=== PATIENT | male | born 1955 | race African-American/Black ===

== ENCOUNTER 2017-05-20 19:50 | Inpatient (IN) | payer OTHER ==
[~2017-05-20] VITALS: Ht 182.9 cm; Wt 89.8 kg
--- NOTE | ~2017-05-20 | HC ---
[facility] [place] [address] CONSULTATION Name: PAIGE ROB Room #: 355-P [facility] IN M.R.#: [id number] Admission: 05/20/17 Attend Phys: Ihsan Madera Discharge: Date of : 51 Report #: [id number] THIS REPORT FOR: //name// CC: Ihsan Wilkerson REASON FOR CONSULTATION: I was asked to evaluate concerning stage 4 sacral decubitus with infection, leukocytosis. HISTORY OF PRESENT ILLNESS: This is a 62-year-old quadriplegic after a fall from a ladder in 01/2017. He underwent C2 through T2 laminectomy and posterior fusion at [facility]. Postoperatively, was quadriparetic. He has neurogenic bowel and bladder. He has incontinence of his bile and has leakage from his urinary catheter. He has been dealing with a sacral decubitus for the last several months. No improvement, he actually has worsened and therefore was transferred from his senior care in [facility]. He has been seen by Wound Care. It is unclear if he has been on any recent antibiotics. ALLERGIES: MORPHINE. MEDICATIONS: As noted on his MAR including vancomycin and Zosyn. PAST MEDICAL HISTORY: Unchanged from his history and physical, which was reviewed in detail. FAMILY HISTORY: Unchanged from his history and physical, which was reviewed in detail. SOCIAL HISTORY: Unchanged from his history and physical, which was reviewed in detail. He is a past smoker. REVIEW OF SYSTEMS: He has a tracheostomy, but is on no oxygen except at night. He is capped. He has a PEG tube. Indwelling Cervantes catheter. No cough or sputum production of significance. Does need occasional suctioning. His tracheostomy has remained in place for adequate access of mucous plugging. The patient did have a prolonged ventilatory stay and required vent weaning at [facility]. PHYSICAL EXAMINATION: VITAL SIGNS: Afebrile, hemodynamically stable. GENERAL: Alert, oriented, pleasant, in no acute distress. He was quadriparetic. HEENT: Unremarkable. NECK: Tracheostomy site unremarkable. LUNGS: Clear. HEART: Regular, without murmur. ABDOMEN: Soft. PEG site was unremarkable. [facility] [address] [place] [address] CONSULTATION Name: DARRONPAIGE K Room #: 355-P [facility] IN .R.#: [id number] Admission: 05/20/17 Attend Phys: Ihsan Madera Discharge: Date of : 51 Report #: [id number] EXTREMITIES: Peripheral IVs in place. Extremities are otherwise unremarkable. BACK: Extensive tissue necrosis to his coccyx with odorous drainage. There was no fluctuance outside the coccyx region. RECTAL: Not performed. GENITOURINARY: External genitalia with indwelling Cervantes catheter. Small amount of drainage from the penis. LABORATORY STUDIES: Sodium 139, potassium 4.3, bicarbonate 25, creatinine 0.5. Hemoglobin 9.3, platelet count 288,000, white count 13.7 with 84% segs, 8% lymphs. Urinalysis with many wbc's, few bacteria. Wound culture is pending. Urine culture is pending. IMPRESSION: A 62-year-old recent quadriplegic with pressure wound to the sacrum, now with tissue necrosis and secondary infection, previous respiratory failure, now with a capped trach. Urinary incontinence with chronic indwelling Cervantes catheter and rectal incontinence. RECOMMENDATIONS: We will continue IV antibiotic therapy with vancomycin and Zosyn. Surgical evaluation for debridement and colostomy. Agree with a suprapubic catheter placement. We would consider holding his PEG tube removal until we have established adequate nutrition and wound healing. Obtain baseline chest x-ray. <ELECTRONICALLY SIGNED> By: Chon Alvarez MD 05/22/17 1622 [id number] [id number] Chon Alvarez MD /nt
--- NOTE | ~2017-05-20 | S ---
[facility] [address] [facility] [address] SURGICAL PATH RPT PROCEDURE Name: PAIGE BURNS Room #: 355-P ADM IN M.R.#: [id number] Admission: 05/20/17 Date of : 51 Discharge: Report #: [id number] Path Case #: [id number] PATHOLOGY REPORT COLLECTION DATE: 05/22/2017 RECEIVED DATE: 05/22/2017 SUBMITTING PHYS: Dr. Brittany Young OTHER PHYS: Dr. Ihsan Wilkerson SPECIMEN(S) RECEIVED: A.Sacral decub * * * * * * * * * * * * FINAL DIAGNOSIS: Sacral decubitus ulcer, debridement: - Marked acute and chronic inflammation associated with fibrinoid degeneration as well as fat necrosis, compatible with the provided history of sacral decubitus. (IUV:mgr; 05/24/2017) PATHOLOGIST: Lona Moscoso M.D. REPORT ELECTRONICALLY SIGNED BY: Lona Moscoso M.D. DATE/TIME: 05/24/2017 15:32 * * * * * * * * * * * * GROSS PATHOLOGY: The specimen is received in formalin labeled "Paige Burns, sacral decubitus ulcer". Received is an irregular excision of santiago-brown 2 necrotic-appearing skin with attached underlying yellow-marlow to santiago-marlow, necrotic-appearing adipose tissue measuring 11.2 x 9.2 x 6.2 cm in greatest dimensions and certainly submitted segment of yellow-marlow to santiago-marlow fibroadipose tissue measuring 6.1 x 3.8 x 2.4 cm. The specimen is submitted representatively in cassette A1. Sectioning reveals yellow-marlow to dusky santiago-marlow, necrotic-appearing cut surfaces. The specimen is submitted representatively in cassette A1. (CAA; 05/23/2017) CLINICAL HISTORY: Sacral decubitus INITIAL CPT CODE(S): A; 79355 Professional [facility] by [facility] at [address] [address] SURGICAL PATH RPT PROCEDURE Name: PAIGE BURNS Room #: 355-P [facility] IN ..#: [id number] Admission: 05/20/17 Date of : 51 Discharge: Report #: [id number] Path Case #: [id number] , [place] [address] Technical services performed by [facility] at [address] [place] [address], [facility] [address] [address]. [facility] [address] [place] [address] PHONE: [phone] DIRECTOR: Michael Torrez M.D. * * * END OF REPORT * * *
--- NOTE | ~2017-05-20 | HC ---
[facility] [address] [place] [address] CONSULTATION Name: PAIGE RBO Room #: 355-P [facility] IN ..#: [id number] Admission: 05/20/17 Attend Phys: Ihsan Madera Discharge: Date of : 51 Report #: [id number] THIS REPORT FOR: //name// CC: Ihsan Wilkerson DATE OF SERVICE: 05/21/2017 REFERRING PROVIDER: Dr. Madera. REASON FOR CONSULTATION: Infected sacral decubitus wound. HISTORY OF PRESENT ILLNESS: The patient is a 62-year-old -[place] male who has developed quadriplegia after a fall off a ladder in January of 2017. The patient underwent C2-T2 laminectomy with posterior instrumentation and fusion in January of 2017 and since then he has become quadriplegic with only minimal feeling above his umbilicus. The patient has lost all bladder and bowel control with incontinence and has had a long-term Cervantes catheter in place. The patient did undergo tracheostomy and PEG tube placement and his tracheostomy has since been capped and he is conversive. His PEG tube is in place and causing no issue, although he is having issues with his long-term Cervantes catheter with chronic leakage and urethral erosion and discharge. Unfortunately, the patient has developed a stage 4 sacral decubitus wound that is grossly infected and has malodorous discharge and for that reason, I was asked to evaluate as well as to evaluate for possible diverting colostomy. 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 He has hypertension, diabetes mellitus, hyperlipidemia, GERD, obstructive sleep apnea, gout, depression, coronary artery disease status post SC, obesity and now neurogenic bowel and bladder. HOME MEDICATIONS: Subcutaneous heparin, guaifenesin, Prozac, Protonix, Colace, Dulcolax, Augmentin, insulin, Zofran, DuoNebs, dexamethasone, Januvia, oxycodone, amlodipine, allopurinol, loratadine, and Tylenol p.r.n. ALLERGIES: MORPHINE, which causes mild itching. FAMILY HISTORY: Reviewed and noncontributory. SOCIAL HISTORY: The patient does not utilize tobacco, alcohol or illicit drugs. He is accompanied by his today. REVIEW OF SYSTEMS: GENERAL: The patient denies nocturnal fevers or chills. [address] [address] CONSULTATION Name: PAIGE ROB Jamal Room #: 355-P [facility] IN .R.#: [id number] Admission: 05/20/17 Attend Phys: Ihsan Madera Discharge: Date of : 51 Report #: [id number] HEENT: No change in vision, change in hearing. NECK: No swelling or difficulty swallowing. HEART: No chest pain, palpitations. LUNGS: No cough or shortness of breath. ABDOMEN: No nausea, no vomiting. GENITOURINARY: No dysuria or hematuria. ENDOCRINE: No polyuria, polydipsia. HEMATOLOGIC: No history of bleeding or easy bruising. EXTREMITIES: Significant weakness and limited range of motion due to paraplegia. NEUROLOGIC: No history of syncope or near syncopal episodes. PSYCHIATRIC: History of depression and anxiety. SKIN AND INTEGUMENT: No prior history of abnormal lesions or moles other than his decubitus wound. PHYSICAL EXAMINATION: VITAL SIGNS: Temperature 99.1, pulse 96, respirations 22, blood pressure 114/54. He is 6 feet 0 inches tall and weighs 198 pounds. GENERAL: He is alert and oriented, in no acute distress. HEENT: Normocephalic, atraumatic. Right Pupil is equal, round, reactive to light. Left eye has been enucleated and has a prosthetic in place. NECK: Supple, without lymphadenopathy. Tracheostomy is intact and capped. HEART: Regular rate and rhythm. LUNGS: Clear to auscultation bilaterally. ABDOMEN: Soft, nontender, nondistended. PEG tube is intact and unremarkable. GENITOURINARY: Normal external male genitalia with Cervantes catheter in place. There is urethral erosion at the meatus with small amount of drainage. EXTREMITIES: No clubbing, cyanosis or edema. Cranial nerves 2-12 are grossly intact. He is quadriplegic. PSYCHIATRIC: Normal mood and affect. SKIN AND INTEGUMENT: He has extensive tissue necrosis to the coccyx with malodorous drainage consistent with a stage IV sacral decubitus wound. LABORATORY AND X-RAY DATA: CBC shows white blood cell count of 13.7 thousand, hemoglobin 9.3, platelets 288,000. Creatinine 0.5. Urinalysis shows greater than 25 white blood cells and 1-9 bacteria with no squamous epithelial cells consistent with urinary tract infection from chronic Cervantes catheterization. Lactic acid normal at 0.8. Chest x-ray shows no acute cardiopulmonary finding. ASSESSMENT AND PLAN: A 62-year-old male who suffered traumatic quadriplegia 4 months ago who presents with a stage 4 sacral decubitus wound that was grossly infected. In addition, the patient has urethral erosions and discharge with a urinary tract infection. Urology has evaluated the patient and is undergoing workup for possible suprapubic catheter placement. As far as the patient's decubitus wound, he necessitates excisional debridement sooner rather than later due to the acute infection in the wound with necrosis. In addition, he would [facility] [address] [place] [address] CONSULTATION Name: DARRONPAIGE K Room #: 355-P [facility] IN M.R.#: [id number] Admission: 05/20/17 Attend Phys: Ihsan Madera Discharge: Date of : 51 Report #: [id number] benefit from the diverting colostomy to divert his fecal stream and make long-term care easier. I did carry out a greater than 60-minute discussion of all the above with the patient and his at the bedside today who are in favor of proceeding forward as well. As such, we will proceed tomorrow with debridement of his wound as well as diverting colostomy and suprapubic catheter placement will be managed by Urology moving forward. I sincerely appreciate this consult. We should continue antibiotics per the direction of Infectious Disease and I will follow closely and leave any further recommendations in the patient's chart as appropriate. <ELECTRONICALLY SIGNED> By: Brittany Young MD, FACS 05/22/17 0759 1526 23 Brittany Young MD, FACS /nt
--- NOTE | ~2017-05-20 | HC ---
[facility] [address] CONSULTATION Name: PAIGE ROB Room #: 355-P [facility] IN M.R.#: [id number] Admission: 05/20/17 Attend Phys: Ihsan Madera Discharge: Date of : 51 Report #: [id number] THIS REPORT FOR: //name// CC: Ihsan Wilkerson DATE OF SERVICE: 05/21/2017 PERSONAL PHYSICIAN: Dr. Larry Wilkerson. CHIEF COMPLAINT: Unstageable decubitus ulcer, concern for stage IV decubitus ulcer. HISTORY OF PRESENT ILLNESS: This is a 62-year-old black male who is quadriplegic after a fall back in 01/2017. The patient states that he thinks he had a cervical fracture that was from the injury and then subsequently underwent surgery and postoperatively, the patient was quadriplegic. The surgery was C2 through T2 laminectomy and posterior fusion. The patient was then transferred back to a fdc in [facility] where he resides. The patient has been having the wound followed by the wound care team there and has been only getting progressively worse, which prompted him to bring him to the hospital here in [place] for further evaluation, more aggressive debridement and wound care. CURRENT MEDICATIONS: Multiple, I reviewed the patient's medication list, it does including vancomycin and Zosyn. ALLERGIES: MORPHINE. PAST MEDICAL HISTORY: Significant for tracheostomy which has now been capped, history of PEG tube, hypertension, diabetes, hyperlipidemia, gastroesophageal reflux disease, coronary artery disease with previous RI. CURRENT MEDICATIONS: ____ inpatient medication list. SOCIAL HISTORY: The patient resides in a nursing care facility. He has approximately a 66-dhpk-suad history of smoking and quitting greater than a year ago. Does not drink alcohol. FAMILY HISTORY: Not pertinent to current medical condition. REVIEW OF SYSTEMS: CONSTITUTIONAL: The patient denies fevers or chills at this time. NEUROLOGIC: The patient has cervical quadriplegia with minimal movement of his upper extremities and no movements of his lower extremities and no sensation. EYES: No complaints. ENT: No complaints. [facility] [address] [place] [address] CONSULTATION Name: PAIGE ROB Jamal Room #: 355-P [facility] IN M.R.#: [id number] Admission: 05/20/17 Attend Phys: Ihsan Madera Discharge: Date of : 51 Report #: [id number] CARDIAC: The patient denies chest pain, palpitations or peripheral edema. RESPIRATORY: The patient denies shortness of breath, cough. The patient does have a tracheostomy in place, but this has been capped. GASTROINTESTINAL: The patient denies nausea, vomiting or abdominal pain. He does have PEG tube. GENITOURINARY: The patient denies urgency, frequency, but he does have urinary incontinence. MUSCULOSKELETAL: No complaints. SKIN: The patient has an unstageable decubitus ulcer with significant eschar and necrotic tissue. PHYSICAL EXAMINATION: VITAL SIGNS: Temperature 37.3, pulse 96, respirations 22, BP 114/54. GENERAL: This is alert and oriented x 3, pleasant black male who is in mild distress secondary to her symptoms. HEENT: Normocephalic, atraumatic. Mucous membranes are moist. Pupils are round. Sclerae white. NECK: Tracheostomy in place, it is capped. There are no signs of excoriation around the tracheostomy site. LUNGS: Clear. HEART: Regular. ABDOMEN: Distended, soft, otherwise essentially nontender. PEG tube is in place without excoriation. EXTREMITIES: The patient has minimal movement of any extremities. Bilateral heels are intact. Distal pulses are intact. Evaluation of sacrococcygeal region reveals an unstageable decubitus ulcer with significant amount of necrotic moist eschar foul-smelling and somewhat spongy in nature. There is some tunneling circumferentially around this, approximately 2-3 cm, with seropurulent drainage, once again moderately foul odor. Periulcer itself is erythematous, but no significant warmth. There is mild maceration. LABORATORY DATA: White count 13.7, hemoglobin 9.3. BUN 8, creatinine 0.5, albumin is pending. WOUND CARE COURSE: I have spoken at length with the patient and the patient's . 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 The patient also already has a PEG tube. I think the patient would be appropriate to have a colostomy to divert the stool away from the coccygeal ulceration. The patient is very agreeable to this as well. At some point in time, the patient most likely will need myocutaneous flap closure to come to complete healing of this wound. I will check an MRI on this patient as well to check the underlying extent of the ulceration underneath what appears to be the unstageable ulcer at this time. We will make sure we maximize the patient's tube feedings at night for protein supplementation. [facility] [address] [place] [address] CONSULTATION Name: PAIGE ROB Room #: 355-P ADM IN M.R.#: [id number] Admission: 05/20/17 Attend Phys: Ihsan Madera Discharge: Date of : 51 Report #: [id number] IMPRESSION: 1. Unstageable decubitus ulcer, sacrococcygeal region present on admission for the past several months. 2. Cervical quadriplegic. 3. Generalized debility. 4. Concern for protein calorie malnutrition. 5. Diabetes mellitus. PLAN: Described at length as above. We will continue to follow the patient. I appreciate the ability to consult. <ELECTRONICALLY SIGNED> By: Richard Cm MD 05/23/17 1145 1318 00 Richard Cm MD /nt
--- NOTE | ~2017-05-20 | O ---
[facility] [address] [address] [address] OPERATIVE REPORT Name: PAIGE ROB Room #: 355-P [facility] IN ..#: [id number] Admission: 05/20/17 Attend Phys: Ihsan Madera Discharge: 05/24/17 Date of : 51 Report #: [id number] THIS REPORT FOR: //name// CC: Ihsan Wilkerson DATE OF SERVICE: 05/22/2017 PREOPERATIVE DIAGNOSES: 1. Infected necrotic stage 4 sacral decubitus wound. 2. Chronic contamination of feces and urine in his wound with incontinence. 3. Traumatic quadriplegia. 4. Resolved respiratory failure, status post tracheostomy and PEG tube placement. 5. Hypertension. 6. Diabetes mellitus. 7. Hyperlipidemia. 8. Gastroesophageal reflux disease. 9. Obstructive sleep apnea. 10. Coronary artery disease status post myocardial infarction. 11. Obesity. POSTOPERATIVE DIAGNOSES: 1. Infected necrotic stage 4 sacral decubitus wound. 2. Chronic contamination of feces and urine in his wound with incontinence. 3. Traumatic quadriplegia. 4. Resolved respiratory failure, status post tracheostomy and PEG tube placement. 5. Hypertension. 6. Diabetes mellitus. 7. Hyperlipidemia. 8. Gastroesophageal reflux disease. 9. Obstructive sleep apnea. 10. Coronary artery disease status post myocardial infarction. 11. Obesity. PROCEDURES PERFORMED: 1. Excisional debridement of skin, subcutaneous tissue, muscle and bone of an infected necrotic stage 4 sacral decubitus wound, ultimately measuring 16.5 x 15 cm in dimension (247.5 square cm). Preoperative wound measurements were 10 x 10 cm with undermining and overt necrosis circumferentially. 2. Diverting loop transverse colostomy. SURGEON: Brittany Young MD BAKERY CHEF: ENA Morrissey. [address] [address] OPERATIVE REPORT Name: DARRONPAIGE K Room #: 355-P [facility] IN ..#: [id number] Admission: 05/20/17 Attend Phys: Ihsan Madera Discharge: 05/24/17 Date of : 51 Report #: [id number] ANESTHESIA: General endotracheal anesthesia. ESTIMATED BLOOD LOSS: Minimal (less than 50 mL). COMPLICATIONS: None appreciated. SPECIMENS: 1. All excised tissue from sacral decubitus wound to pathology. 2. Culture swabs to microbiology. 3. Bone to microbiology to rule out osteomyelitis. INDICATIONS: The patient is a 62-year-old -[place]ian male who suffered traumatic quadriplegia after falling off a ladder approximately 4 months ago. The patient underwent C2-T2 laminectomy with fusion and has overwhelming functional quadriplegia. The patient has neurogenic bowel and bladder with development of a stage 4 sacral decubitus wound that is infected with grossly necrotic tissue and purulent drainage with malodor. Indication was for debridement and diverting colostomy today. DESCRIPTION OF PROCEDURE: After explaining the risks, benefits and alternatives of the procedure with the patient in detail and obtaining consent, the patient was brought to the operating room and placed supine on his hospital bed. After conducting a thorough timeout procedure, verifying correct patient and procedure, the patient was given general endotracheal anesthesia via his indwelling tracheostomy appliance. Once adequate anesthesia was obtained, his SCDs were hooked up to pneumatic compression device and he is already on an inpatient regimen of IV antibiotic therapy, which is all in line with the SCIP protocol. The patient was now positioned on the operating room table in the prone position with all pressure points appropriately padded and his sacral wound was prepped and draped in standard surgical sterile fashion. Electrocautery was used to circumferentially debride all skin, subcutaneous tissue and muscle from the periphery of the wound, carrying it down to the depths of the wound where there was obvious bony exposure throughout. Once all necrotic tissue had been removed, there was evidence of purulent drainage, which was cultured with culture swabs and passed off the field for microbiologic analysis. All infected necrotic and devascularized tissue was removed as the excision was taken back to healthy bleeding tissue circumferentially as well as in the depths of the wound. The tip of the coccyx was removed with rongeurs back to healthy bleeding bone and this was also passed off the field to microbiology. The Saygentonix ultrasonic debridement tool was now used to remove all biofilm and remaining nonviable tissue throughout the bed of the decubitus wound, ultimately yielding a healthy wound bed throughout. Hemostasis was obtained with electrocautery. I now sprayed thrombin spray throughout the wound and packed it tightly with sterile saline-soaked Kerlix gauze, dressed it with 4 x 4s, ABDs and Medipore tape. The patient was then repositioned on the [address] [address] OPERATIVE REPORT Name: PAIGE ROB Room #: 355-P [facility] IN M.R.#: [id number] Admission: 05/20/17 Attend Phys: Ihsan Madera Discharge: 01/25/18 Date of : 51 Report #: [id number] operating room table in the supine position and the abdomen was prepped and draped in standard surgical sterile fashion. A #10 bladed scalpel was used to create a 3 cm vertical incision midway between the umbilicus and the xiphoid just to the right of midline. Electrocautery was used to carry this down through skin and subcutaneous tissues until I arrived upon the anterior fascia, which was scored longitudinally. This revealed the right rectus muscle posteriorly of which the fibers were split, revealing the posterior fascia. Posterior fascia was elevated between hemostats and was opened with Metzenbaum scissors. A finger was then placed in the abdomen. The remaining posterior fascia was opened with electrocautery in a controlled fashion with my finger in the abdomen to prevent injury from electrocautery burn. The transverse colon was seen to reside immediately posterior to the incision and this was grasped with a Kaylynn clamp and elevated into the wound. A window was made in the mesocolon and the colostomy retention bar was placed through this window, which was then anchored to the skin using 2-0 nylon in standard fashion. The antimesenteric aspect of the colon was elevated between DeBakey forceps and a small colotomy was made with electrocautery. This colotomy was intubated with a hemostat and this was used to extend the colotomy approximately 3 cm laterally to prevent injury to the back wall with cautery. I then used 3-0 Vicryl, taking full thickness bites on both the superior and inferior aspects to either side of the retention bar and anchoring it to the dermis. A 3-0 Vicryl was then used in standard running fashion to anchor the mucocutaneous juncture on both the left and right sides of the new colostomy. This gave us an excellently oriented vascularized loop transverse colostomy. Digital finger intubation showed patency to a subfascial level of both the afferent and efferent limbs. A sterile colostomy appliance was then applied. At the end of the procedure, all instrument, needle and sponge counts were correct. The patient tolerated the procedure without incident, was awakened in the operating room and transitioned to the recovery room in stable condition with no apparent complications. <ELECTRONICALLY SIGNED> By: Brittany Young MD, FACS 05/28/17 0806 [id number] Brittany Young MD, FACS /nt
[2017-05-20 21:30] VITALS: BP 111/70
[2017-05-20] MEDS ORDERED: HEPARIN 5 U1 UNIT/ML IV (22:23)
[2017-05-20] MEDS ORDERED: GUAIFENESIN200 MG PO (22:24)
[2017-05-20] MEDS ORDERED: PROTONIX40 M1 PO (22:25)
[2017-05-20] MEDS ORDERED: PROZAC20 MG PO (22:25)
[2017-05-20] MEDS ORDERED: FLEXERIL PO (22:26)
[2017-05-20] MEDS ORDERED: COLACE 100 MG100 MG PO (22:26)
[2017-05-20] MEDS ORDERED: BISACODYL SUPP10 MG RECTAL (22:27)
[2017-05-20] MEDS ORDERED: AUGMENTIN 875-1 EACH PO (22:28)
[2017-05-20] MEDS ORDERED: LEVEMIR SUBQ (22:29)
[2017-05-20] MEDS ORDERED: ONDANSETRON HCL4 M2 PO (22:30)
[2017-05-20] MEDS ORDERED: DUONEB 2.5-0.5 M3 ML INH (22:31)
[2017-05-20] MEDS ORDERED: DEXAMETHASONE0.5 MG PO (22:43)
[2017-05-20] MEDS ORDERED: JANUVIA100 MG PO (22:44)
[2017-05-20] MEDS ORDERED: SENNA8.6 MG PO (22:44)
[2017-05-20] MEDS ORDERED: OXAYDO5 MG PO (22:45)
[2017-05-20] MEDS ORDERED: NORVASC5 MG PO (22:46)
[2017-05-20] MEDS ORDERED: ALLOPURINOL 10100 M1 PO (22:46)
[2017-05-20] MEDS ORDERED: APAP650 PO (22:47)
[2017-05-20] MEDS ORDERED: CLARITIN10 MG PO (22:50)
[2017-05-20 23:40] VITALS: BP 132/78
[2017-05-21 03:25] LABS: URINE BILIRUBIN NEGATIVE (Negative); URINE BLOOD TRACE (Negative); URINE CLARITY CLOUDY; URINE COLOR YELLOW; URINE GLUCOSE-RANDOM* NEGATIVE (Negative); URINE KETONES NEGATIVE (Negative); URINE PROTEIN (DIPSTICK) TRACE (Negative); URINE UROBILINOGEN 0.2 E.U./dl (0.2-1.0)
[2017-05-21 03:26] LABS: URINE LEUKOCYTES-REFLEX 2+ (Negative); URINE NITRITE-REFLEX POSITIVE (Negative)
[2017-05-21 03:40] VITALS: BP 112/65
[2017-05-21 03:42] LABS: URINE WBC-REFLEX >25 Many /HPF (0-5)
[2017-05-21 03:43] LABS: URINE RBC 3-10 Few /HPF (0-2)
[2017-05-21 03:44] LABS: BACTERIA-REFLEX 1-9 Few /HPF (None Seen); CASTS None Seen /LPF (None Seen); CRYSTALS None Seen /LPF (None Seen); SQUAMOUS None Seen /LPF (0-3); WBC CLUMPS Occasional (None Seen)
[2017-05-21 06:48] LABS: ABSOLUTE NEUTROPHILS 11.6 thou/uL (1.4-8.2); BASOPHILS 0.9 % (0.0-2.0); EOSINOPHILS 0.7 % (0.0-3.0); HEMATOCRIT 28.1 % (42.0-52.0); HEMOGLOBIN 9.3 gm/dL (14.0-18.0); LYMPHOCYTES 8.7 % (24.0-44.0); MCH 27.3 pg (26.0-34.0); MCHC 33.1 g/dL (28.0-37.0); MCV 82.6 fL (80.0-100.0); MONOCYTES 5.3 % (1.0-8.0); PLATELET COUNT 288 thou/uL (150-400); POLYS 84.4 % (36.0-66.0); RDW 15.6 % (10.5-14.5); WBC 13.7 thou/uL (4.0-11.0)
[2017-05-21 06:57] LABS: CALCIUM 8.7 mg/dL (8.5-10.1); CREATININE 0.5 mg/dL (0.7-1.3); MAGNESIUM 1.5 mg/dL (1.8-2.4); POTASSIUM 3.4 mmol/L (3.5-5.1)
[2017-05-21 08:09] VITALS: BP 109/58
[2017-05-21 12:05] VITALS: BP 114/54
[2017-05-21 17:00] VITALS: BP 116/59
[2017-05-21 20:15] VITALS: BP 126/65
[2017-05-22] VITALS (11 sets, daily range): BP systolic 108–135; BP diastolic 54–68
[2017-05-22 07:55] LABS: CALCIUM 8.4 mg/dL (8.5-10.1); CREATININE 0.5 mg/dL (0.7-1.3); PHOSPHORUS 4.1 mg/dL (2.5-4.9); POTASSIUM 4.1 mmol/L (3.5-5.1)
[2017-05-23 04:30] VITALS: BP 113/61
[2017-05-23 08:48] VITALS: BP 125/61
[2017-05-23 11:10] VITALS: BP 135/73
[2017-05-23 16:29] VITALS: BP 141/65
[2017-05-23 19:55] VITALS: BP 149/63
[2017-05-24 03:45] VITALS: BP 155/56
[2017-05-24 07:10] VITALS: BP 155/56
[2017-05-24 07:17] VITALS: BP 135/59
[2017-05-24 14:15] VITALS: BP 135/59
[2017-05-24 14:21] VITALS: BP 118/76
[2017-07-04] MEDS ORDERED: LASIX 40 MG TAB40 M2 PO (00:17)
[2017-07-04] MEDS ORDERED: ENOXAPARIN40 MG/0.1 SUBQ (00:21)
[2017-07-04] MEDS ORDERED: LISINOPRIL10 MG PO (00:22)
[2017-07-04] MEDS ORDERED: NEO-BACIT-POLY3.5 GM TOP (00:24)
[2017-07-04] MEDS ORDERED: VANCO 1 GR1 GM/250 M IV (00:26)
[2017-07-04] MEDS ORDERED: ZOSYN 3.373.375 GM/1 IV (00:27)
[2017-07-04] MEDS ORDERED: XANAX 0.5 MG0.5 MG PO (00:28)
[2017-07-04] MEDS ORDERED: HYDROCODON-ACE1 EAC7 PO (00:30)
[2017-07-04] MEDS ORDERED: PHENASEPTIC1 BOT PO (00:30)
[2017-07-04] MEDS ORDERED: TRADJENTA5 MG PO (00:32)
[2017-07-04] MEDS ORDERED: ROBITUSSIN100 MG/53 PO (00:32)
[2017-07-04] MEDS ORDERED: DIFLUCAN200 MG PO ×2 (00:33→00:34)
== END 2017-05-24 18:24 | DRG 853 ==
LOC: 3W 19:50
PROVIDERS: Hospitalist; Nurse Practitioner Family
PROC: 0QB10ZZ Excision of Sacrum, Open Approach (ICD-10-PCS; principal; 2017-05-22)
PROC: 0D1L0Z4 Bypass Transverse Colon to Cutaneous, Open Approach (ICD-10-PCS; principal; 2017-05-22)
DX: A41.9 Sepsis, unspecified organism (principal); L89.154 Pressure ulcer of sacral region, stage 4; G82.50 Quadriplegia, unspecified; N39.0 Urinary tract infection, site not specified; K59.2 Neurogenic bowel, not elsewhere classified; G47.33 Obstructive sleep apnea (adult) (pediatric); I10 Essential (primary) hypertension; E11.9 Type 2 diabetes mellitus without complications; K21.9 Gastro-esophageal reflux disease without esophagitis; I25.10 Atherosclerotic heart disease of native coronary artery without angina pectoris; E66.9 Obesity, unspecified; R32 Unspecified urinary incontinence; E78.5 Hyperlipidemia, unspecified; L89.150 Pressure ulcer of sacral region, unstageable; M10.9 Gout, unspecified; S14.109A Unspecified injury at unspecified level of cervical spinal cord, initial encounter; X58.XXXA Exposure to other specified factors, initial encounter; F32.9 Major depressive disorder, single episode, unspecified; G83.9 Paralytic syndrome, unspecified; M60.9 Myositis, unspecified; Z91.19 Patient's noncompliance with other medical treatment and regimen; Z93.0 Tracheostomy status; Z93.1 Gastrostomy status; I25.2 Old myocardial infarction; Z68.26 Body mass index [BMI] 26.0-26.9, adult; Z88.6 Allergy status to analgesic agent; Y93.89 Activity, other specified; Y92.89 Other specified places as the place of occurrence of the external cause; Y99.8 Other external cause status; Z87.891 Personal history of nicotine dependence; Z82.49 Family history of ischemic heart disease and other diseases of the circulatory system; Z79.899 Other long term (current) drug therapy
CPT/HCPCS: 10879; 50010; 50101; 50386; 50403; 53353; 56524; 56525; 57092; 62110; 62900; 70005

== ENCOUNTER 2017-07-03 17:26 | Inpatient (IN) | payer OTHER ==
[~2017-07-03] VITALS: Ht 157.5 cm; Wt 99.9 kg
--- NOTE | ~2017-07-03 | HC ---
[facility] [place] [address] [address] [place] [address] CONSULTATION Name: PAIGE ROB Room #: 361-[facility] IN M.R.#: [id number] Admission: 07/03/17 Attend Phys: Jimbo Ceballos MD Discharge: Date of : 51 Report #: [id number] THIS REPORT FOR: //name// CC: Jimbo Wilkerson DATE OF SERVICE: 07/03/2017 CHIEF COMPLAINT: Stage 4 sacral pressure ulcer. HISTORY OF PRESENT ILLNESS: This is a 62-year-old male patient with whom we are familiar from the Wound Care Service with a history of quadriplegia and sacral pressure ulceration. He has had a previous debridement with colostomy and suprapubic catheter. He has developed fever and is brought in for further evaluation and treatment. The patient denies any specific discomfort at this time other than pain in his neck and shoulders, which is typical. PAST MEDICAL HISTORY: Positive for quadriplegia, stage 4 sacral pressure ulceration, status post debridement. MEDICATIONS: Include morphine, fluoxetine, pantoprazole, ondansetron, senna, allopurinol, furosemide, enoxaparin, lisinopril, vancomycin, Zosyn, alprazolam, hydrocodone, Phenaseptic, guaifenesin, linagliptin, fluconazole. SOCIAL HISTORY: Negative for alcohol or tobacco use. FAMILY HISTORY: Noncontributory. REVIEW OF SYSTEMS: CONSTITUTIONAL: Does have fever and chills. Denies weight loss. NEUROLOGICAL: The patient is quadriplegic. ENT: The patient denies earache, nasal drainage or sore throat. CARDIOVASCULAR: The patient denies chest pain or palpitations or diaphoresis. PULMONARY: The patient denies cough or shortness of breath. GASTROINTESTINAL: The patient denies nausea, vomiting or abdominal pain. Has colostomy and a suprapubic catheter. PHYSICAL EXAMINATION: SKIN: Pelvic region demonstrates a stage 4 sacral pressure ulcer. Bone is palpable in the base; however, it is mostly covered with some granulation tissue and the base is healthy, clean and granular. He has a new ulceration on the left ischial tuberosity, appears to be stage 3, although very superficial, clean with granulation tissue. Heels are intact. NEUROLOGICAL: The patient is a quadriplegic. He is awake, alert and oriented. CLINICAL IMPRESSION: [address] [address] CONSULTATION Name: PAIGE ROB Room #: 361[facility] IN ..#: [id number] Admission: 07/03/17 Attend Phys: Jimbo Ceballos MD Discharge: Date of : 51 Report #: [id number] 1. Stage 4 sacral pressure ulceration. 2. Stage 3 pressure ulceration of the left ischial tuberosity, which is new. 3. Quadriplegia secondary to spinal cord injury. 4. Severe protein calorie malnutrition with albumin of 1.7. RECOMMENDATIONS: At this point in time, we will resume the wound VAC to the sacral ulceration. Recommend a hydrocolloid or bordered foam to the right ischial tuberosity. He will need a low air loss mattress, q.2 hour turning and repositioning. Prevalon boots to both lower extremities. He will need aggressive nutritional support to maximize wound healing. Antibiotics per Infectious Disease. I appreciate being asked to see him in consultation. <ELECTRONICALLY SIGNED> By: Cornelio Delgado MD 07/05/17 0752 [id number] Cornelio Delgado MD /nt
--- NOTE | ~2017-07-03 | H ---
[facility] [place] [address] [place] [address] HISTORY AND PHYSICAL Name: PAIGE ROB Room #: 361-P ADM IN M.R.#: [id number] Admission: 07/03/17 Attend Phys: Jimbo Ceballos MD Discharge: Date of : 51 Report #: [id number] THIS REPORT FOR: //name// CC: Jimbo Wilkerson DATE OF SERVICE: 07/03/2017 ATTENDING PHYSICIAN: Eder Gillespie MD. PRIMARY CARE PHYSICIAN: Unknown. CHIEF COMPLAINT: Fevers. HISTORY OF PRESENT ILLNESS: The patient is a 62-year-old -[place] male with a history of traumatic quadriplegia secondary to falling off of a ladder with a C2 injury in 01/2017. He was admitted here in April for a large sacral wound that was nonhealing and he underwent an I and D of the wound and then had placement of a diverting colostomy as well as a suprapubic catheter. From there, he was sent to [facility] and then on 06/20/2017, he was transferred to [facility] for long-term care. He was there about 4 days and then started having fevers, so he was admitted at [facility]. Initially, he was treated for sepsis at [facility] and he was mildly hypoxic. He was started on vancomycin and Zosyn. Chest x-ray has been negative. He was diagnosed with UTI and ended up growing yeast in his urine as well, did not have any urine culture results, but the blood cultures have remained negative. His lactate level has been normal. He states he has been having some associated chills and reports that most of his fevers are occurring in the evenings. He has had a PICC line in place for the last 1-1/2 to 2 months. He thinks his temperatures have been up to 100.4 despite being on IV antibiotics. He has had a wound VAC in place for the sacral wound. They have not noticed any foul smelling drainage or increased drainage from the wound. I do not see any wound cultures that have been obtained. He was transferred here due to persistent fevers for further evaluation. He is currently resting comfortably, in no acute distress. PAST MEDICAL HISTORY: Quadriplegia after a C2 injury, prior respiratory failure with tracheostomy placement, chronic sacral wound, hypertension, hyperlipidemia, diabetes, vertigo, GERD, sleep apnea, gout, depression, coronary artery disease status post FL. PAST SURGICAL HISTORY: C2-T2 laminectomy with posterior instrumentation and fusion. 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 [address] [address] HISTORY AND PHYSICAL Name: PAIGE ROB Room #: 361-P [facility] IN M.R.#: [id number] Admission: 07/03/17 Attend Phys: Jimbo Ceballos MD Discharge: Date of : 51 Report #: [id number] ALLERGIES: MORPHINE CAUSED HALLUCINATIONS. HOME MEDICATIONS: Current meds at [facility] were Zosyn, vancomycin, fluconazole 200 mg p.o. daily, DuoNeb p.r.n., Lovenox 40 mg at bedtime, lisinopril 10 mg daily, Armstrong 5/325 one tab q. 4 hours p.r.n., Tylenol p.r.n., Prozac 20 mg p.o. daily, Xanax 0.5 mg t.i.d. p.r.n., Lasix 40 mg p.o. daily, Robitussin p.r.n., Colace 100 mg b.i.d. p.r.n., senna b.i.d., Zofran q. 4 hours p.r.n., Protonix 40 mg p.o. daily, Tradjenta 5 mg p.o. daily, and allopurinol 100 mg p.o. daily. SOCIAL HISTORY: The patient denies any current tobacco use. He is a former smoker, having smoked 1 pack per day for about 20 years. He quit over a year ago. Denies any alcohol use. He currently is at [facility]. FAMILY HISTORY: Significant for heart disease and cancer. REVIEW OF SYSTEMS: The patient is able to swallow food, fluids, and meds without difficulty. He still has a PEG tube in place, but his states they really do not use it for anything at this time. There was a period last year when he had not been eating or drinking well, in which the PEG tube had been used. As far as his sacral wound, he currently has a wound VAC in place. All other 12-point review of systems was reviewed with the patient, otherwise negative unless stated in the HPI. PHYSICAL EXAMINATION: GENERAL: The patient is an alert male, in no acute distress. VITAL SIGNS: Temperature is 37.1, heart rate 97, respirations 22, blood pressure 147/82, oxygen 99% on 2 liters O2. HEENT: The left pupil is nonreactive as it is a prosthesis. Right pupil is reactive. Oral mucosa is pink and moist. NECK: He does have a trach in place. The site is clean, dry and intact. No JVD noted. CARDIOVASCULAR: Normal S1, S2. No murmurs, rubs or gallops. RESPIRATORY: Breath sounds are clear in the upper lobes. He is slightly coarse in both bases. Breathing is nonlabored. ABDOMEN: Round and soft. He does have bowel sounds present. Colostomy on the right side does have a moderate amount of air. It is an opaque bag, so no stool or stoma could be visualized. The PEG tube is clamped. The site is clean, dry and intact. Suprapubic catheter site is clean, dry and intact. VASCULAR: 2+ edema in bilateral upper extremities. There is no edema in the lower extremities. Pedal pulses are 2+. NEUROLOGIC: The patient is alert and oriented x 3. He is answering questions appropriately. He is unable to move his arms or legs. He does have some sensation in his upper extremities, but no movement. No significant contractures noted. SKIN: He does have a large sacral wound, but wound VAC is in place and the actual wound was not able to be assessed. [address] [address] HISTORY AND PHYSICAL Name: PAIGE ROB Room #: [facility] ADM IN M.R.#: [id number] Admission: 07/03/17 Attend Phys: Jimbo Ceballos MD Discharge: Date of : 51 Report #: [id number] LABORATORY AND DIAGNOSTIC DATA: Lab work done at [facility] showed a WBC of 7.06, hemoglobin 9.0 and platelets 326. Sodium 142, potassium 3.4, BUN 6, creatinine 0.7, glucose is 97. Influenza is negative. Chest x-ray is negative. Blood cultures have been negative. ASSESSMENT AND PLAN: 1. Persistent fevers. So far, his evaluation at [facility] was unremarkable. He has been treated for days on broad-spectrum antibiotics consisting of Zosyn and vancomycin. He did have some yeast in his urine and fluconazole was added in the last few days. We will continue with vancomycin, but switched to meropenem. Continue fluconazole. Infectious Disease will be consulted. He will be recultured with blood cultures and check a viral respiratory panel. 2. Large sacral decubitus ulcer. I do not see any imaging from [facility] as far as a CT scan to rule out osteomyelitis. We will consult Dr. Cm with Wound Care and check a CRP level. Continue the above antibiotics. 3. Recent urinary tract infection and funguria. Continue the above antibiotics and fluconazole and repeat a UA at this time. 4. Diabetes. Continue sliding scale insulin and Tradjenta. 5. Hypertension. Blood pressure is stable. Continue home meds. 6. Quadriplegia due to C2 injury. Reposition frequently. 7. Chronic respiratory failure. The patient is currently on 2 liters per nasal cannula. Trachea has been capped. Continue with breathing treatments. 8. Deep venous thrombosis prophylaxis. Continue Lovenox. We will continue to follow the patient closely throughout the hospitalization and make changes based on clinical status. <ELECTRONICALLY SIGNED> By: RADHA Newsome 07/05/17 0416 [id number] RADHA Newsome /nt
[~2017-07-03 17:26] MED LIST: ALLOPURINOL 10100 M1 PO; APAP650 PO; AUGMENTIN 875-1 EACH PO; BISACODYL SUPP10 MG RECTAL; CLARITIN10 MG PO; COLACE 100 MG100 MG PO; DEXAMETHASONE0.5 MG PO; DUONEB 2.5-0.5 M3 ML INH; FLEXERIL PO; GUAIFENESIN200 MG PO; HEPARIN 5 U1 UNIT/ML IV; JANUVIA100 MG PO; LEVEMIR SUBQ; NORVASC5 MG PO; ONDANSETRON HCL4 M2 PO; OXAYDO5 MG PO; PROTONIX40 M1 PO; PROZAC20 MG PO; SENNA8.6 MG PO
[2017-07-03 22:30] VITALS: BP 147/82
[2017-07-04] MEDS ORDERED: LASIX 40 MG TAB40 M2 PO ×2 (00:17)
[2017-07-04] MEDS ORDERED: ENOXAPARIN40 MG/0.1 SUBQ ×2 (00:21)
[2017-07-04] MEDS ORDERED: LISINOPRIL10 MG PO ×2 (00:22)
[2017-07-04] MEDS ORDERED: NEO-BACIT-POLY3.5 GM TOP ×2 (00:24)
[2017-07-04] MEDS ORDERED: VANCO 1 GR1 GM/250 M IV ×2 (00:26)
[2017-07-04] MEDS ORDERED: ZOSYN 3.373.375 GM/1 IV ×2 (00:27)
[2017-07-04] MEDS ORDERED: XANAX 0.5 MG0.5 MG PO ×2 (00:28)
[2017-07-04] MEDS ORDERED: HYDROCODON-ACE1 EAC7 PO ×2 (00:30)
[2017-07-04] MEDS ORDERED: PHENASEPTIC1 BOT PO ×2 (00:30)
[2017-07-04] MEDS ORDERED: ROBITUSSIN100 MG/53 PO ×2 (00:32)
[2017-07-04] MEDS ORDERED: TRADJENTA5 MG PO ×2 (00:32)
[2017-07-04] MEDS ORDERED: DIFLUCAN200 MG PO ×4 (00:33→00:34)
[2017-07-04 04:00] VITALS: BP 177/87
[2017-07-04 06:19] LABS: ABSOLUTE NEUTROPHILS 7.4 thou/uL (1.4-8.2); EOSINOPHILS 2.3 % (0.0-3.0); HEMATOCRIT 27.4 % (42.0-52.0); HEMOGLOBIN 8.8 gm/dL (14.0-18.0); MCH 26.5 pg (26.0-34.0); MCHC 32.2 g/dL (28.0-37.0); MCV 82.3 fL (80.0-100.0); MONOCYTES 8.6 % (1.0-8.0); PLATELET COUNT 351 thou/uL (150-400); POLYS 80.1 % (36.0-66.0); RBC 3.33 mil/uL (4.50-6.00); WBC 9.2 thou/uL (4.0-11.0)
[2017-07-04 06:39] LABS: ALBUMIN 1.7 g/dL (3.4-5.0); CALCIUM 8.3 mg/dL (8.5-10.1); CREATININE 0.8 mg/dL (0.7-1.3); POTASSIUM 3.1 mmol/L (3.5-5.1); TOTAL BILIRUBIN 0.2 mg/dL (<0.1-1.0); TOTAL PROTEIN 5.5 g/dL (6.4-8.2)
[2017-07-04 08:04] VITALS: BP 148/73
[2017-07-04 08:35] LABS: URINE BILIRUBIN NEGATIVE (Negative); URINE BLOOD NEGATIVE (Negative); URINE CLARITY SL CLOUDY; URINE COLOR YELLOW; URINE GLUCOSE-RANDOM* NEGATIVE (Negative); URINE KETONES NEGATIVE (Negative); URINE NITRITE-REFLEX NEGATIVE (Negative); URINE PROTEIN (DIPSTICK) NEGATIVE (Negative); URINE SPECIFIC GRAVITY <= 1.005 (1.005-1.035); URINE UROBILINOGEN 0.2 E.U./dl (0.2-1.0)
[2017-07-04 08:36] LABS: URINE LEUKOCYTES-REFLEX 2+ (Negative)
[2017-07-04 08:54] LABS: CASTS None Seen /LPF (None Seen); SQUAMOUS 0-3 Few /LPF (0-3); YEAST-REFLEX Present (None Seen)
[2017-07-04 08:55] LABS: AMORPHOUS URATES Few /LPF (None Seen); BACTERIA-REFLEX 1-9 Few /HPF (None Seen); URINE RBC 0-2 Rare /HPF (0-2); URINE WBC-REFLEX 6-15 Few /HPF (0-5)
[2017-07-04 11:34] VITALS: BP 113/55
[2017-07-04 15:20] VITALS: BP 141/75
[2017-07-04 20:00] VITALS: BP 153/68
[2017-07-05 04:00] VITALS: BP 142/63
[2017-07-05 08:51] VITALS: BP 136/74
[2017-07-05 12:14] VITALS: BP 125/60
[2017-07-05 17:49] LABS: MAGNESIUM 1.4 mg/dL (1.8-2.4); POTASSIUM 3.4 mmol/L (3.5-5.1)
[2017-07-05 19:58] VITALS: BP 135/63
[2017-07-06 03:53] VITALS: BP 131/67
[2017-07-06 07:28] VITALS: BP 193/91
[2017-07-06 07:44] LABS: CALCIUM 8.5 mg/dL (8.5-10.1); CREATININE 0.9 mg/dL (0.7-1.3); MAGNESIUM 1.5 mg/dL (1.8-2.4); POTASSIUM 3.2 mmol/L (3.5-5.1)
[2017-07-06 09:55] VITALS: BP 146/70
[2017-07-06 11:32] VITALS: BP 157/86
[2017-07-06 16:13] VITALS: BP 143/74
[2017-07-06 23:10] LABS: ADENOVIRUS Negative (Negative); INFLUENZA A Negative (Negative); INFLUENZA B Negative (Negative); METAPNEUMOVIRUS Negative (Negative); PARAINFLUENZA 1 Negative (Negative); PARAINFLUENZA 2 Negative (Negative); PARAINFLUENZA 3 Negative (Negative); RHINOVIRUS Negative (Negative); RSV A Negative (Negative); RSV B Negative (Negative)
== END 2017-07-06 17:09 | DRG 592 ==
LOC: 3W 17:26
PROVIDERS: Hospitalist; Internal Medicine; Nurse Practitioner Acute Care
PROC: 05HB33Z Insertion of Infusion Device into Right Basilic Vein, Percutaneous Approach (ICD-10-PCS; principal; 2017-07-04)
DX: L89.154 Pressure ulcer of sacral region, stage 4 (principal); G82.50 Quadriplegia, unspecified; E43 Unspecified severe protein-calorie malnutrition; Z68.41 Body mass index [BMI] 40.0-44.9, adult; J96.11 Chronic respiratory failure with hypoxia; L89.323 Pressure ulcer of left buttock, stage 3; T14.8XXA Other injury of unspecified body region, initial encounter; I10 Essential (primary) hypertension; E78.5 Hyperlipidemia, unspecified; E11.9 Type 2 diabetes mellitus without complications; K21.9 Gastro-esophageal reflux disease without esophagitis; M10.9 Gout, unspecified; F32.9 Major depressive disorder, single episode, unspecified; I25.10 Atherosclerotic heart disease of native coronary artery without angina pectoris; J44.9 Chronic obstructive pulmonary disease, unspecified; G47.33 Obstructive sleep apnea (adult) (pediatric); Z93.3 Colostomy status; X58.XXXA Exposure to other specified factors, initial encounter; Y92.89 Other specified places as the place of occurrence of the external cause; Y99.8 Other external cause status; Z93.0 Tracheostomy status; I25.2 Old myocardial infarction; Z88.6 Allergy status to analgesic agent; Z93.1 Gastrostomy status; Z82.49 Family history of ischemic heart disease and other diseases of the circulatory system; Z87.891 Personal history of nicotine dependence; Z79.4 Long term (current) use of insulin; Z79.899 Other long term (current) drug therapy
CPT/HCPCS: 10879

== ENCOUNTER 2017-07-07 11:26 | Emergency (ER) | payer OTHER ==
[~2017-07-07] VITALS: Ht 180.3 cm; Wt 90.7 kg
[~2017-07-07 11:26] MED LIST changes: +DIFLUCAN200 MG PO; +ENOXAPARIN40 MG/0.1 SUBQ; +HYDROCODON-ACE1 EAC7 PO; +LASIX 40 MG TAB40 M2 PO; +LISINOPRIL10 MG PO; +NEO-BACIT-POLY3.5 GM TOP; +PHENASEPTIC1 BOT PO; +ROBITUSSIN100 MG/53 PO; +TRADJENTA5 MG PO; +VANCO 1 GR1 GM/250 M IV; +XANAX 0.5 MG0.5 MG PO; +ZOSYN 3.373.375 GM/1 IV
[2017-07-07 12:08] LABS: URINE BILIRUBIN NEGATIVE (Negative); URINE BLOOD NEGATIVE (Negative); URINE CLARITY CLEAR; URINE COLOR YELLOW; URINE GLUCOSE-RANDOM* NEGATIVE (Negative); URINE KETONES NEGATIVE (Negative); URINE LEUKOCYTES-REFLEX 1+ (Negative); URINE NITRITE-REFLEX NEGATIVE (Negative); URINE PROTEIN (DIPSTICK) NEGATIVE (Negative); URINE UROBILINOGEN 0.2 E.U./dl (0.2-1.0)
[2017-07-07 12:14] LABS: BACTERIA-REFLEX 1-9 Few /HPF (None Seen); CASTS None Seen /LPF (None Seen); CRYSTALS None Seen /LPF (None Seen); SQUAMOUS None Seen /LPF (0-3); URINE RBC None Seen /HPF (0-2); URINE WBC-REFLEX 6-15 Few /HPF (0-5)
[2017-07-07 12:14] LABS: ABSOLUTE NEUTROPHILS 6.4 thou/uL (1.4-8.2); BASOPHILS 0.9 % (0.0-2.0); EOSINOPHILS 2.3 % (0.0-3.0); HEMATOCRIT 26.9 % (42.0-52.0); HEMOGLOBIN 8.9 gm/dL (14.0-18.0); LYMPHOCYTES 11.5 % (24.0-44.0); MCH 26.5 pg (26.0-34.0); MCHC 33.1 g/dL (28.0-37.0); PLATELET COUNT 420 thou/uL (150-400); POLYS 74.3 % (36.0-66.0); RBC 3.37 mil/uL (4.50-6.00); RDW 17.4 % (10.5-14.5); WBC 8.6 thou/uL (4.0-11.0)
[2017-07-07 12:23] LABS: ANION GAP 5 mmol/L (7-16); BUN 16 mg/dL (7-18); CALCIUM 8.5 mg/dL (8.5-10.1); CHLORIDE 110 mmol/L (98-107); CO2 24 mmol/L (21-32); CREATININE 0.9 mg/dL (0.7-1.3); GLUCOSE 102 mg/dL (74-106); POTASSIUM 3.2 mmol/L (3.5-5.1); SODIUM 139 mmol/L (136-145)
[2017-07-07 12:29] LABS: ALBUMIN 1.7 g/dL (3.4-5.0); DIRECT BILIRUBIN < 0.1 mg/dL (<0.1-0.3); MAGNESIUM 1.5 mg/dL (1.8-2.4); SGOT 21 U/L (15-37); SGPT 10 U/L (30-65); TOTAL BILIRUBIN 0.2 mg/dL (<0.1-1.0); TOTAL PROTEIN 5.6 g/dL (6.4-8.2)
[2017-07-07 15:58] VITALS: BP 150/82
== END 2017-07-07 15:58 | disposition home or self-care (01) ==
LOC: ER 11:26
PROVIDERS: Emergency Medicine
DX: E87.6 Hypokalemia (principal); E83.42 Hypomagnesemia; G82.50 Quadriplegia, unspecified; I10 Essential (primary) hypertension; E11.9 Type 2 diabetes mellitus without complications; K21.9 Gastro-esophageal reflux disease without esophagitis; M10.9 Gout, unspecified; G47.33 Obstructive sleep apnea (adult) (pediatric)

== ENCOUNTER 2017-09-02 04:13 | Inpatient (IN) | payer OTHER ==
[~2017-09-02] VITALS: Ht 157.5 cm; Wt 81.9 kg
--- NOTE | ~2017-09-02 | HC ---
[facility] [place] [address] [address] [place] [address] CONSULTATION Name: PAIGE ROB Room #: 201-P ADM IN M.R.#: [id number] Admission: 09/02/17 Attend Phys: Candelario Hazel DO Discharge: Date of : 51 Report #: [id number] THIS REPORT FOR: //name// CC: Jimbo Ceballos FAM unknown REFERRAL PHYSICIAN: Dr. Hazel. REASON FOR REFERRAL: Hemoptysis. HISTORY OF PRESENT ILLNESS: The patient is a 62-year-old -[place] Islander male who was admitted with hemoptysis. A pulmonary consultation was requested. The patient sustained a C2 cervical spine injury following a fall from a ladder in January 2017. He is quadriplegic. He has a chronic tracheostomy, which has been capped. He was in his usual state of health until yesterday, he was found to have mild hemoptysis through the trach. For that reason, he was admitted. Presently, he denies any complaints. Denies any chest pain, febrile illness. No further bright red per blood per tracheostomy is noted. As mentioned above, he had a fall from a ladder sustaining a C2 injury resulting in quadriplegia. This occurred in 01/2017. He was hospitalized for some time and eventually to an LTAC. Most recently, he lives in a longterm in [place], [place]. PAST MEDICAL HISTORY: As mentioned above, chronic respiratory failure, status post tracheostomy, chronic sacral wound, hypertension, hyperlipidemia, diabetes mellitus type 2, gastroesophageal reflux disease, SILVER, gout, coronary artery disease, past history of myocardial infarction. PAST SURGICAL HISTORY: As mentioned above, including C2-T2 laminectomy, prior history of cardiac surgery, status post tracheostomy tube placement, multiple sacral wound debridements, left prosthetic eye in 1976 due to a tumor, status post PEG tube placement, status post diverting colostomy tube placement, suprapubic catheter placement, prior right thumb surgery, left rotator cuff surgery. ALLERGIES: MORPHINE, WHICH CAUSES HALLUCINATIONS. MEDICATIONS: Lists are reviewed, in the MAR. FAMILY HISTORY: Notable for heart disease and cancer, type not specified. SOCIAL HISTORY: Presently resides in a longterm, has a chronic tracheostomy [facility] [address] [place] [address] CONSULTATION Name: PAIGE ROB Room #: 201-P [facility] IN [facility].#: [id number] Admission: 09/02/17 Attend Phys: Candelario Hazel DO Discharge: Date of : 51 Report #: [id number] tube that is capped. He has smoked in the past, smoking 1 pack a day until the last year. Denies any alcohol abuse. He is . He lives at [facility]. REVIEW OF SYSTEMS: As mentioned above, otherwise notable for quadriplegia. A 10-point system review is otherwise unremarkable. PHYSICAL EXAMINATION: GENERAL: He is awake, alert, in no apparent distress. VITAL SIGNS: Temperature is 99 degrees Fahrenheit, blood pressure 100/63 mmHg, respiratory rate is 16, saturation 96%. HEENT: Unremarkable. NECK: Status post tracheostomy tube, which is capped. CHEST: Clear breath sounds anteriorly. No rales or wheezes. CARDIOVASCULAR: Normal S1, S2. No murmurs or gallop. There is no JVD. There is no carotid bruit. Pulses are 2+ and 4+ bilaterally. ABDOMEN: Soft, nontender, no organomegaly or masses felt. GENITOURINARY: Deferred. RECTAL: Deferred. EXTREMITIES: There is no edema, cyanosis or clubbing. MUSCULOSKELETAL: Notable for mild muscle atrophy. LABORATORY DATA: Pending including chest x-ray. IMPRESSION: 1. Hemoptysis, probably related to either bronchitis or tracheal trauma. We will review chest x-ray. He does not appear to have an acute infectious process at this time. Impression: Traumatic fall sustaining a C2 injury resulting in quadriplegia, status post chronic tracheostomy. As mentioned above, tracheostomy is capped. 2. Chronic hypoxic respiratory failure on 2 liters of O2. 3. Chronic large decubitus ulcer. 4. History of coronary artery disease. 5. Diabetes mellitus type 2. 6. Hypertension. RECOMMENDATION: We will review labs when available including chest x-ray. I think for now, continue observation. If hemoptysis recurs or persists, we will consider diagnostic bronchoscopy. Thank you for the consultation. <ELECTRONICALLY SIGNED> By: Dallas Alvarez MD 09/03/17 [id number] [id number] Dallas Alvarez MD /nt
--- NOTE | ~2017-09-02 | HC ---
[facility] [place] [address] CONSULTATION Name: PAIGE ROB Room #: 201-P [facility] IN M.R.#: [id number] Admission: 09/02/17 Attend Phys: Candelario Hazel DO Discharge: 09/05/17 Date of : 51 Report #: [id number] THIS REPORT FOR: //name// CC: FAM unknown Candelario Hazel DATE OF SERVICE: 09/04/2017 REASON FOR CONSULTATION: Wound care of sacral stage 4 pressure wound and the left ischial stage 3 pressure wound in a patient with quadriplegia, respiratory failure and tracheostomy. HISTORY OF PRESENT ILLNESS: The patient is a patient suffering from quadriplegia, 62-year-old gentleman known to us from previous admissions. He was transferred from his outpatient care facility with hemoptysis and pulmonary consultation was requested. Wound care is requested to assess and care for his chronic wound, which are known to be a stage 4 wound of the sacrum and a stage 3 wound of the left ischial area. The patient is quadriplegic from a fall from a ladder in 01/2017 with resulting quadriplegia, respiratory failure and tracheostomy. The patient had hemoptysis, was transferred to the hospital. We are asked to take care of his wounds, have been previously debrided by Dr. Brittany Young. PAST MEDICAL HISTORY: Chronic respiratory failure with tracheostomy, hypertension, hyperlipidemia, and diabetes mellitus type 2. PAST SURGICAL HISTORY: History of diverting colostomy and PEG tube. ALLERGIES: MORPHINE. MEDICATIONS: See chart. PHYSICAL EXAMINATION: GENERAL: Shows chronic ill-appearing gentleman, alert, with a tracheostomy. The patient has a colostomy and a PEG tube. EXTREMITIES: Show quadriplegia. BACK: Examination of the patient's back shows a large stage 4 sacral pressure ulcer, which is well demarcated. Wound measures approximately 9 cm x 10 cm. Entire wound is lined with healthy granulation tissue, which is also covering sacral bone and coccyx with good granulation tissue. This wound is relatively clean. The patient also has a left ischial stage 3 pressure ulcer with no exposed bone. Wound measures approximately 4 cm x 6 cm. Both wounds have slightly foul odor and heavy exudate. IMPRESSION: 1. Quadriplegia. [address] [address] CONSULTATION Name: PAIGE ROB Room #: 201-P DIS IN M.R.#: [id number] Admission: 09/02/17 Attend Phys: Candelario Hazel DO Discharge: 09/05/17 Date of : 51 Report #: [id number] 2. Respiratory failure with tracheostomy. 3. Chronic diversion with colostomy. 4. Malnutrition with percutaneous endoscopic gastrostomy tube feeding. 5. Chronic sacral stage 4 pressure ulcer, status post debridement. 6. Left ischial stage 3 pressure ulcer. PLAN: Due to the foul odor of the wounds and heavy exudate, we will treat the wounds with quarter strength Dakin's packing. Once the wounds are office cleaner and if patient remains at [facility], we can treat the sacral wound with continued negative pressure wound therapy with a wound VAC. Once the patient is stabilized from his hemoptysis, however, he may be transferred back to his facility. Wound VAC to sacral wound can continue, wound care team will follow. <ELECTRONICALLY SIGNED> By: Derrick Berumen MD 09/07/17 1245 1815 0709 Derrick Berumen MD /nt
--- NOTE | ~2017-09-02 | O ---
[facility] [place] [address] OPERATIVE REPORT Name: PAIGE ROB Room #: 201-P [facility] IN M.R.#: [id number] Admission: 09/02/17 Attend Phys: Candelario Hazel DO Discharge: 09/05/17 Date of : 51 Report #: [id number] THIS REPORT FOR: //name// CC: FAM unknown Candelario Hazel DATE OF SERVICE: 09/04/2017 PREOPERATIVE DIAGNOSES: 1. Indwelling capped tracheostomy and malfunctioning PEG tube. 2. Traumatic quadriplegia. 3. Resolving intermittent dysphagia. 4. Hypertension. 5. Diabetes mellitus. 6. Hyperlipidemia. 7. Obstructive sleep apnea. 8. Coronary artery disease status post myocardial infarction. 9. Status post colostomy placement and debridement of a stage IV sacral decubitus wound. POSTOPERATIVE DIAGNOSES: 1. Indwelling capped tracheostomy and malfunctioning PEG tube. 2. Traumatic quadriplegia. 3. Resolving intermittent dysphagia. 4. Hypertension. 5. Diabetes mellitus. 6. Hyperlipidemia. 7. Obstructive sleep apnea. 8. Coronary artery disease status post myocardial infarction. 9. Status post colostomy placement and debridement of a stage IV sacral decubitus wound. PROCEDURES: 1. A thorough esophagogastroduodenoscopy (EGD). 2. Endoscopic removal of an indwelling percutaneous endoscopic gastrostomy (PEG) tube. SURGEON: Brittany Young MD SUPERVISOR [employer] CAN SUPPLY: None. ANESTHESIA: Monitored anesthesia care. ESTIMATED BLOOD LOSS: None. COMPLICATIONS: None. [facility] [place] [address] OPERATIVE REPORT Name: PAIGE ROB Room #: 201-P [facility] IN M.R.#: [id number] Admission: 09/02/17 Attend Phys: Candelario Hazel DO Discharge: 09/05/17 Date of : 51 Report #: [id number] SPECIMENS: PEG tube to pathology. INDICATIONS: The patient is a 62-year-old male known to me from a prior sacral debridement and diverting colostomy, who has undergone tracheostomy and PEG tube placement for acute respiratory failure after sustaining quadriplegia from a traumatic incident. The patient has done quite well as of late and has not utilized his PEG tube for several months as he is taking oral intake without issue. He was having intermittent dysphagia early on, which has improved substantially as of late and as he is tolerating all oral intake with no issues and has not used his PEG tube for some time, he requests removal, which is appropriate at this time point. In addition, the patient's indwelling PEG tube is completely occluded by material within the lumen of the tube itself due to not flushing it for several months and this required removal. Due to his recent intermittent dysphagia, indication was for EGD and endoscopic removal of the indwelling tube. DESCRIPTION OF PROCEDURE: After explaining the risks, benefits and alternatives of the procedure with the patient in detail in the preoperative holding area and obtaining written consent, the patient was brought to the endoscopy suite supine on his hospital bed. After conducting a thorough timeout procedure verifying correct patient and procedure, the patient was given monitored anesthesia care. Once adequate anesthesia was obtained, the Fujinon upper endoscope was used to intubate the oropharynx, was traversed down to the esophagus where the internal flange of the PEG tube was identified. The scope was advanced to the second portion of the duodenum where slow careful withdrawal of the scope showed no evidence of duodenitis, gastritis, esophagitis, mass, lesions or ulcerations. Retroflexion view of the scope within the gastric lumen showed a small hiatal hernia. The scope was straightened out and a loop snare was placed down the scope, which was used to grasp the internal flange. The PEG tube was pulled up and suture scissors were used to cut this at the skin level, transecting the PEG tube and the scope was removed via the oropharynx, bringing the internal flange of the PEG tube with it, which was passed off the field as specimen. The scope was advanced back into the esophagus where the esophagus itself was seen to be straight with no inflammation, no stricturing and no abnormal changes present. The stomach was fully desufflated. Scope was removed and passed off the field completing the procedure. At the end of the procedure, all instrument, needle and sponge counts were correct. The patient tolerated the procedure without incident, was awakened in the operating room, transitioned to the recovery room in stable condition with no apparent complications. <ELECTRONICALLY SIGNED> By: Brittany Young MD, FACS 09/05/17 1331 1218 1307 Brittany Young MD, FACS /nt
--- NOTE | ~2017-09-02 | HC ---
[facility] [place] [address] CONSULTATION Name: PAIGE ROB Room #: 201-P [facility] IN M.R.#: [id number] Admission: 09/02/17 Attend Phys: Candelario Hazel DO Discharge: Date of : 51 Report #: [id number] THIS REPORT FOR: //name// CC: Jimbo NAJERA unknown DATE OF SERVICE: 09/02/2017 REFERRING PROVIDER: Candelario Hazel DO. REASON FOR CONSULTATION: Tracheostomy bleeding and request for PEG tube removal as well as followup from ostomy placement. HISTORY OF PRESENT ILLNESS: The patient is a 62-year-old male known to me as I performed debridement of a stage 4 sacral decubitus wound as well as diverting loop transverse colostomy in 04/2017. The patient did have a tracheostomy and PEG tube placed prior to his admission in April and has since transitioned back to an LTAC for ongoing rehabilitation. Unfortunately, the patient had a large amount of blood from his tracheostomy site as they began suctioning him once again and has subsequently been transitioned back to the [facility] for ongoing evaluation. At this time, the patient's tracheostomy site does not appear to be bleeding. He has a PEG tube in place that has not been used for several weeks and he is tolerating p.o. intake without issue. The patient's colostomy appears pink, patent and functional as well. PAST MEDICAL HISTORY: Traumatic quadriplegia with respiratory failure, status post tracheostomy and PEG tube placement. 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 He has hypertension, diabetes mellitus, hyperlipidemia, GERD, obstructive sleep apnea, gout, depression, coronary artery disease status post [place], obesity, neurogenic bowel and bladder and he is status post colostomy placement and debridement of a stage IV sacral decubitus wound. HOME MEDICATIONS: DuoNeb, vancomycin, Prozac, Protonix, Colace, Zofran, senna, allopurinol, Tylenol, Lasix, Lovenox, lisinopril, triple antibiotic ointment, Zosyn, Xanax, [place], guaifenesin, linagliptin and Diflucan. ALLERGIES: TO MORPHINE. FAMILY HISTORY: Reviewed and noncontributory. SOCIAL HISTORY: The patient is currently not utilizing tobacco, alcohol or illicit drugs. REVIEW OF SYSTEMS: [address] [address] CONSULTATION Name: PAIGE ROB Room #: 201-P [facility] IN M.R.#: [id number] Admission: 09/02/17 Attend Phys: Candelario Hazel DO Discharge: Date of : 51 Report #: [id number] GENERAL: The patient denies nocturnal fevers or chills. HEENT: No change in vision, change in hearing. NECK: No swelling or difficulty swallowing. HEART: No chest pain, palpitations. LUNGS: No cough or shortness of breath. ABDOMEN: No nausea, no vomiting. GENITOURINARY: No dysuria or hematuria. ENDOCRINE: No polyuria or polydipsia. HEMATOLOGIC: No history of bleeding or easy bruising. EXTREMITIES: Significant weakness and limited range of motion due to paraplegia. NEUROLOGIC: No history of syncope or near syncopal episodes. PSYCHIATRIC: History of depression and anxiety. SKIN AND INTEGUMENT: Stage IV sacral decubitus wound that has undergone debridement. PHYSICAL EXAMINATION: VITAL SIGNS: Temperature 99.0, pulse 87, respirations 16, blood pressure 103/63. He is 5 feet 2 inches tall and weighs 176 pounds. GENERAL: He is alert and oriented, in no acute distress. HEENT: Normocephalic, atraumatic. Right pupil is equal, round, reactive to light. Left eye has been enucleated and has a prosthetic in place. NECK: Supple, without lymphadenopathy. Tracheostomy site is clean. I see no bleeding evident. HEART: Regular rate and rhythm. LUNGS: Clear to auscultation bilaterally. ABDOMEN: Soft, nontender, nondistended. Colostomy is pink, patent and functional. PEG tube is intact and unremarkable. GENITOURINARY: Normal external male genitalia. He has suprapubic catheter in place. EXTREMITIES: No clubbing, cyanosis or edema. NEUROLOGIC: Cranial nerves 2-12 are grossly intact. He is quadriplegic. PSYCHIATRIC: Normal mood and affect. SKIN AND INTEGUMENT: Stage IV sacral decubitus wound is relatively clean with a small amount of fibrinous exudate. LABORATORY AND X-RAY DATA: None available as it is all currently pending at this time. ASSESSMENT AND PLAN: A 62-year-old male who suffered traumatic quadriplegia several months ago and underwent tracheostomy and PEG tube placement as well as subsequently a colostomy with suprapubic catheter placement and debridement of a stage IV sacral decubitus wound. The patient has now been readmitted for hemoptysis through his tracheostomy site, although I do not see any ongoing bleeding and Pulmonary has been asked to evaluate for that as well. As for the patient's colostomy, it is pink, patent and functioning at this time and his [address] [address] CONSULTATION Name: PAIGE ROB Room #: 201-P [facility] IN .Luke.#: [id number] Admission: 09/02/17 Attend Phys: Candelario Hazel DO Discharge: Date of : 51 Report #: [id number] sacral wound is not yet fully healed, but is making significant improvement. The patient's PEG tube is in place, although he is tolerating regular diet and his PEG tube has not been utilized for several months. The patient was requesting possible removal of his PEG tube, which I think is a reasonable approach at this time point. Once he has been fully evaluated from his hemoptysis standpoint, we would plan to proceed with upper endoscopy with removal of the PEG tube at that time rather than traumatic withdrawal through the abdominal wall, especially in light of this patient who is on prophylactic anticoagulation to prevent DVT in this high-risk population. I sincerely appreciate this consult. I will follow closely and leave any further recommendations in the patient's chart as appropriate. <ELECTRONICALLY SIGNED> By: Brittany Young MD, FACS 09/03/17 1028 1532 1843 Brittany Young MD, FACS /nt
[2017-09-02 05:46] VITALS: BP 102/58
[2017-09-02 12:20] VITALS: BP 103/63
[2017-09-02 16:59] VITALS: BP 137/62
[2017-09-02 19:43] VITALS: BP 130/60
[2017-09-02 21:05] LABS: ABSOLUTE NEUTROPHILS 5.1 thou/uL (1.4-8.2); BASOPHILS 0.9 % (0.0-2.0); EOSINOPHILS 5.4 % (0.0-3.0); HEMATOCRIT 28.3 % (42.0-52.0); HEMOGLOBIN 9.5 gm/dL (14.0-18.0); LYMPHOCYTES 14.9 % (24.0-44.0); MCH 27.5 pg (26.0-34.0); MCHC 33.5 g/dL (28.0-37.0); MCV 82.1 fL (80.0-100.0); MONOCYTES 8.2 % (1.0-8.0); PLATELET COUNT 268 thou/uL (150-400); POLYS 70.6 % (36.0-66.0); RBC 3.45 mil/uL (4.50-6.00); WBC 7.2 thou/uL (4.0-11.0)
[2017-09-02 21:12] LABS: CALCIUM 8.7 mg/dL (8.5-10.1); CREATININE 0.6 mg/dL (0.7-1.3); POTASSIUM 3.2 mmol/L (3.5-5.1)
[2017-09-03] VITALS (7 sets, daily range): BP systolic 102–165; BP diastolic 52–72
[2017-09-03 05:02] LABS: HEMATOCRIT 27.8 % (42.0-52.0); HEMOGLOBIN 9.3 gm/dL (14.0-18.0); MCH 27.3 pg (26.0-34.0); MCHC 33.4 g/dL (28.0-37.0); MCV 81.7 fL (80.0-100.0); RBC 3.41 mil/uL (4.50-6.00); RDW 19.6 % (10.5-14.5); WBC 6.9 thou/uL (4.0-11.0)
[2017-09-03 05:17] LABS: ALBUMIN 2.1 g/dL (3.4-5.0); CALCIUM 8.8 mg/dL (8.5-10.1); CREATININE 0.5 mg/dL (0.7-1.3); POTASSIUM 3.5 mmol/L (3.5-5.1); TOTAL BILIRUBIN 0.2 mg/dL (<0.1-1.0); TOTAL PROTEIN 5.7 g/dL (6.4-8.2)
[2017-09-03 13:20] LABS: CALCIUM 8.8 mg/dL (8.5-10.1); CREATININE 0.5 mg/dL (0.7-1.3); POTASSIUM 3.3 mmol/L (3.5-5.1)
[2017-09-04 04:45] VITALS: BP 142/63
[2017-09-04 05:58] LABS: ABSOLUTE NEUTROPHILS 5.6 thou/uL (1.4-8.2); BASOPHILS 0.9 % (0.0-2.0); EOSINOPHILS 3.5 % (0.0-3.0); HEMATOCRIT 27.2 % (42.0-52.0); HEMOGLOBIN 9.1 gm/dL (14.0-18.0); LYMPHOCYTES 12.6 % (24.0-44.0); MCHC 33.3 g/dL (28.0-37.0); MCV 80.9 fL (80.0-100.0); MONOCYTES 8.4 % (1.0-8.0); PLATELET COUNT 256 thou/uL (150-400); POLYS 74.6 % (36.0-66.0); RBC 3.37 mil/uL (4.50-6.00); RDW 19.5 % (10.5-14.5); WBC 7.5 thou/uL (4.0-11.0)
[2017-09-04 06:06] LABS: CALCIUM 8.4 mg/dL (8.5-10.1); CREATININE 0.5 mg/dL (0.7-1.3); POTASSIUM 3.1 mmol/L (3.5-5.1)
[2017-09-04 07:15] VITALS: BP 142/71
[2017-09-04 11:03] VITALS: BP 144/62
[2017-09-04 15:05] VITALS: BP 157/70
[2017-09-04 19:10] VITALS: BP 135/78
[2017-09-05 04:35] VITALS: BP 134/72
[2017-09-05 05:41] LABS: ABSOLUTE NEUTROPHILS 7.4 thou/uL (1.4-8.2); BASOPHILS 0.6 % (0.0-2.0); EOSINOPHILS 2.3 % (0.0-3.0); HEMATOCRIT 25.6 % (42.0-52.0); HEMOGLOBIN 8.7 gm/dL (14.0-18.0); LYMPHOCYTES 11.3 % (24.0-44.0); MCH 27.4 pg (26.0-34.0); MCV 80.8 fL (80.0-100.0); MONOCYTES 5.6 % (1.0-8.0); PLATELET COUNT 268 thou/uL (150-400); POLYS 80.2 % (36.0-66.0); RBC 3.17 mil/uL (4.50-6.00); RDW 19.5 % (10.5-14.5); WBC 9.3 thou/uL (4.0-11.0)
[2017-09-05 05:51] LABS: CALCIUM 8.2 mg/dL (8.5-10.1); CREATININE 0.4 mg/dL (0.7-1.3)
[2017-09-05 06:04] LABS: POTASSIUM 2.9 mmol/L (3.5-5.1)
[2017-09-05 07:06] VITALS: BP 153/80
== END 2017-09-05 13:10 | DRG 907 ==
LOC: ICU 04:13 → 2N 05:20
PROVIDERS: Family Medicine; Internal Medicine Pulmonary Disease; Nurse Practitioner Family
PROC: 0DP63UZ Removal of Feeding Device from Stomach, Percutaneous Approach (ICD-10-PCS; principal; 2017-09-04)
DX: L76.22 Postprocedural hemorrhage of skin and subcutaneous tissue following other procedure (principal); L89.154 Pressure ulcer of sacral region, stage 4; L89.323 Pressure ulcer of left buttock, stage 3; S14.102A Unspecified injury at C2 level of cervical spinal cord, initial encounter; G82.50 Quadriplegia, unspecified; K94.23 Gastrostomy malfunction; J95.01 Hemorrhage from tracheostomy stoma; Y83.8 Other surgical procedures as the cause of abnormal reaction of the patient, or of later complication, without mention of misadventure at the time of the procedure; Y83.3 Surgical operation with formation of external stoma as the cause of abnormal reaction of the patient, or of later complication, without mention of misadventure at the time of the procedure; Y92.89 Other specified places as the place of occurrence of the external cause; I10 Essential (primary) hypertension; E78.5 Hyperlipidemia, unspecified; E11.9 Type 2 diabetes mellitus without complications; K21.9 Gastro-esophageal reflux disease without esophagitis; G47.33 Obstructive sleep apnea (adult) (pediatric); M10.9 Gout, unspecified; E66.9 Obesity, unspecified; W11.XXXA Fall on and from ladder, initial encounter; Z86.010 Personal history of colon polyps; I25.10 Atherosclerotic heart disease of native coronary artery without angina pectoris; I25.2 Old myocardial infarction; Z68.33 Body mass index [BMI] 33.0-33.9, adult; Z87.891 Personal history of nicotine dependence; Z93.3 Colostomy status; Z88.5 Allergy status to narcotic agent; Z82.49 Family history of ischemic heart disease and other diseases of the circulatory system; Z80.8 Family history of malignant neoplasm of other organs or systems; Y93.89 Activity, other specified; Y99.8 Other external cause status
CPT/HCPCS: 10081; 27001; 62110; 62900; 70005

== ENCOUNTER 2017-10-08 03:21 | Inpatient (IN) | payer OTHER ==
[~2017-10-08] VITALS: Ht 160 cm; Wt 89.0 kg
--- NOTE | ~2017-10-08 | PATH ---
[facility] [address] [place] [address] PATHOLOGY RPT PROCEDURE Name: PAIGE BURNS Room #: 205-P [facility] IN M.R.#: [id number] Admission: 10/08/17 Date of : 51 Discharge: Report #: [id number] Path Case #: [id number] [facility] Accession Number: [id number] . 01 Material submitted: . LEFT ISCHIAL WOUND . 01 Clinical history: . Sacral and ischial . 02 Diagnosis: Left ischial wound, debridement: - Marked acute inflammation along with ulceration as well as fibrinoid degeneration, consistent with wound. (IUV:pit; 10/16/2017) QTP/10/16/2017 . 02 Electronically signed: . Lona Moscoso MD, Pathologist NPI- [id number] . 01 Gross description: . The specimen is received in formalin, labeled "Paige Burns, left ischial wound". Received is a segment of yellow-marlow fibroadipose tissue with attached dusky santiago-marlow to santiago-brown, necrotic-appearing skin measuring 7.5 x 6.5 x 3.7 cm in greatest dimensions. The specimen is submitted representatively in cassette A1. (CAA; 10/15/2017) QAC/QAC . 02 CPT . 337848 Performed at: [address], [place] [id number] MD Scar Meek MD Phone: [phone] Performed at: [address] [id number] MD Lona Moscoso MD Phone: [phone]
--- NOTE | ~2017-10-08 | HC ---
[facility] [place] [address] CONSULTATION Name: PAIGE ROB Room #: 205-P ADM IN M.R.#: [id number] Admission: 10/08/17 Attend Phys: Eder Gillespie MD Discharge: Date of : 53 Report #: [id number] THIS REPORT FOR: //name// CC: FAM unknown Eder Gillespie DATE OF SERVICE: 10/08/2017 REASON FOR CONSULTATION: I was asked to evaluate concerning fever. HISTORY OF PRESENT ILLNESS: The patient is a 62-year-old quadriparetic with underlying diabetes. Has a tracheostomy. Evaluated initially in April where he had a chronic nonhealing sacral wound and ischial wound. Had evidence of osteomyelitis to the sacrum. Underwent surgical debridement with colostomy and suprapubic catheter placement. Received a prolonged course of IV antibiotic therapy. Was again rehospitalized in June with fevers. No specific etiology was identified. He was retreated with antibiotics and improved. Now returns with increased fever, pulmonary congestion, persistent wounds. Had been at long-term care. Transferred from [facility]. Here, his temperature was up to 100 degrees. Hemodynamically was stable on 4 liters of oxygen per nasal cannula. Moderate tracheal secretions, although he remains capped. No nausea or vomiting. No diarrhea from his colostomy. Has good urine output. Wound VAC is now off his sacrum and left ischial wounds. ALLERGIES: MORPHINE. MEDICATIONS: As noted on his MAR including DuoNeb, Prozac, Protonix, Colace, Zofran, senna, allopurinol, Tylenol, Lasix, Lovenox, Zestril, Xanax, hydrocodone, guaifenesin, Tradjenta, fluconazole. Was added vancomycin and Zosyn this admission. PAST MEDICAL HISTORY, FAMILY HISTORY, AND SOCIAL HISTORY: Unchanged from his history and physical and that of my previous consultation. FAMILY HISTORY: Noncontributory. SOCIAL HISTORY: Past smoker. No significant alcohol intake. PHYSICAL EXAMINATION: VITAL SIGNS: Afebrile, hemodynamically stable. GENERAL: Alert and cooperative. Conversant. HEENT: Unremarkable. Tracheostomy site was unremarkable. LUNGS: Coarse breath sounds posteriorly with no consolidation. HEART: Regular, without murmur. ABDOMEN: Obese. No appreciable mass. Colostomy unremarkable. Suprapubic catheter unremarkable. [address] [address] CONSULTATION Name: PAIGE ROB Room #: 205-P ADM IN M.R.#: [id number] Admission: 10/08/17 Attend Phys: Eder Gillespie MD Discharge: Date of : 51 Report #: [id number] BACK: Wounds to his sacrum had minimal drainage which was serosanguineous. The coccyx was palpable. Left ischium had darkened tissue at the base of the wound without purulent drainage. No fluctuance. LABORATORY STUDIES: Sodium 142, potassium 2.9, bicarbonate 23, creatinine 0.6. Liver function test normal. Hemoglobin 8.2, platelet count 258,000, white count 13.7. IMPRESSION AND PLAN: A 62-year-old with fever in the setting of quadriplegia, chronic tracheostomy, osteomyelitis of the sacrum, chronic wound to his left ischium. We will evaluate further with urine studies, chest x-ray, sputum culture. Obtain previous tissue culture report. In the meantime, continue with broad antibiotic coverage including vancomycin and Zosyn. <ELECTRONICALLY SIGNED> By: Chon Alvarez MD 10/09/17 0744 1216 1942 Chon Alvarez MD /nt
--- NOTE | ~2017-10-08 | HC ---
[facility] [place] [facility] [place] [address] CONSULTATION Name: PAIGE ROB Room #: [facility] IN M.R.#: [id number] Admission: 10/08/17 Attend Phys: Eder Gillespie MD Discharge: Date of : 51 Report #: [id number] THIS REPORT FOR: //name// CC: FAM unknown Eder Gillespie TYPE OF REPORT: Pulmonary consultation. REFERRING PHYSICIAN: Eder Gillespie M.D. REASON FOR REFERRAL: Preop pulmonary evaluation. HISTORY OF PRESENT ILLNESS: The patient is a 62-year-old -[place] male who was admitted on 10/08/2017 for pneumonia. He has known severe sacral decubitus wound. He is scheduled to undergo surgery. A pulmonary consultation was requested for preoperative pulmonary evaluation. The patient has extensive medical history. He was involved in a fall in January 2017 sustaining a neck fracture. He has a C2 cervical spine injury. He is quadriplegic. He has a chronic tracheostomy. He was last hospitalized in August of 2017 for hemoptysis. He normally resides at [facility]. He is in his usual state of health until the day of presentation, he started to complain of dyspnea. Chest x-ray on admission revealed mild left-sided infiltrates. Currently, he feels like he is at baseline. Denies any dyspnea or chest pain. Denies any hemoptysis. A tracheal suction was said to be unremarkable. PAST MEDICAL HISTORY: As mentioned above, C2 cervical spine fracture and quadriplegia. PAST SURGICAL HISTORY: Prior surgery including C2 laminectomy and T2 laminectomy, status post tracheostomy, PEG tube placement, multiple sacral wounds, left prosthetic eye in 1976 due to tumor, status post diverting colostomy tube, suprapubic catheter, prior thumb surgery and left rotator cuff surgery. ALLERGIES: To MORPHINE, which causes hallucinations. CURRENT MEDICATIONS: Lists are listed in the MAR. FAMILY HISTORY: Notable for heart disease and cancer. SOCIAL HISTORY: Resides in a [facility], has a chronic tracheostomy [facility] [place] [facility] [address] [facility] [place] [address] CONSULTATION Name: PAIGE ROB Room #: 205-P [facility] IN ..#: [id number] Admission: 10/08/17 Attend Phys: Eder Gillespie MD Discharge: Date of : 51 Report #: [id number] that is capped. The patient has smoked in the past, stopped about a year ago. Denies any alcohol use. He is . REVIEW OF SYSTEMS: As mentioned above, otherwise 10-point system review negative. PHYSICAL EXAMINATION: GENERAL: He is awake and alert, in no distress. VITAL SIGNS: Temperature is 98.8 degrees Fahrenheit, pulse is 90, respiratory rate is 20, blood pressure 160/76 mmHg and saturation 100%. HEENT: Normocephalic and atraumatic. NECK: Status post tracheostomy. CHEST: Breath sounds are fair due to poor effort. Breath sounds are decreased in the bases. No obvious rales or wheezes. CARDIOVASCULAR: Normal S1 and S2. There are no murmurs or gallops. There is no JVD. There is no carotid bruit. Pulses are 2+/4+ bilaterally. ABDOMEN: Soft and nontender. No organomegaly or masses felt. GENITOURINARY: Deferred. RECTAL: Deferred. EXTREMITIES: No cyanosis, clubbing or edema. RADIOLOGICAL DATA: Portable chest x-ray on admission again shows mild left-sided infiltrates. MRI of the sacrum with contrast noted showing deep decubitus ulcer without evidence of osteomyelitis. LABORATORY DATA: Electrolytes are normal, creatinine 0.6. Liver functions are normal. WBC is 13,700; hemoglobin is 8.2 and platelets are normal. Albumin 1.7. Arterial blood gas is pending. IMPRESSION: 1. Pneumonia in this 62-year-old -[place] male with quadriplegia. 2. C2 neck fracture following a fall in 2017, status post chronic tracheostomy. 3. Severe decubitus ulcer. Plans for surgery noted. 4. Obstructive sleep apnea. 5. Hypertension. 6. Diabetes mellitus. 7. Neurogenic bladder status post suprapubic catheter. RECOMMENDATION AND DISCUSSION: Overall, the patient appears to be fairly stable from pulmonary standpoint. I will obtain ABG and followup chest x-ray. If these are stable, I believe the patient should tolerate the anticipated surgery. I will reassess in the morning. [address] [place] [address] CONSULTATION Name: PAIGE ROB Room #: 205-P [facility] IN M.R.#: [id number] Admission: 10/08/17 Attend Phys: Eder Gillespie MD Discharge: Date of : 51 Report #: [id number] Thank you for the consultation. <ELECTRONICALLY SIGNED> By: Dallas Alvarez MD 10/12/17 1725 1747 2201 Dallas Alvarez MD /nt
--- NOTE | ~2017-10-08 | O ---
[facility] [place] [address] OPERATIVE REPORT Name: PAIGE ROB Room #: 205-P [facility] IN M.R.#: [id number] Admission: 10/08/17 Attend Phys: Eder Gillespie MD Discharge: Date of : 51 Report #: [id number] THIS REPORT FOR: //name// CC: FAM unknown Eder Gillespie DATE OF SERVICE: 10/12/2017 PREOPERATIVE DIAGNOSES: 1. Infected necrotic stage 4 sacral and left ischial decubitus wounds. 2. Traumatic quadriplegia. 3. Resolved respiratory failure with indwelling tracheostomy. 4. Hypertension. 5. Diabetes mellitus. 6. Hyperlipidemia. 7. Gastroesophageal reflux disease. 8. Obstructive sleep apnea. 9. Coronary artery disease status post myocardial infarction. 10. Obesity. 11. Severe protein calorie malnutrition with poor p.o. intake. POSTOPERATIVE DIAGNOSES: 1. Infected necrotic stage 4 sacral and left ischial decubitus wounds. 2. Traumatic quadriplegia. 3. Resolved respiratory failure with indwelling tracheostomy. 4. Hypertension. 5. Diabetes mellitus. 6. Hyperlipidemia. 7. Gastroesophageal reflux disease. 8. Obstructive sleep apnea. 9. Coronary artery disease status post myocardial infarction. 10. Obesity. 11. Severe protein calorie malnutrition with poor p.o. intake. PROCEDURES PERFORMED: 1. Excisional debridement of skin, subcutaneous tissue, muscle and bone of a necrotic left ischial decubitus wound ultimately measuring 10.5 x 8 cm in dimension (84 cm2). Preoperative wound measurements were 9 x 7 cm in dimension with circumferential necrosis. 2. Excisional debridement of skin, subcutaneous tissue, muscle and bone of a stage 4 sacral decubitus wound ultimately measuring 8.5 x 7 cm in dimension (59.5 cm2). Preoperative wound measurements were 8 x 6 cm in dimension with slight amount of periwound necrosis as well. 3. Total debrided area, all to bone, equaled 143.5 cm2. 4. Esophagogastroduodenoscopy (EGD) with percutaneous endoscopic gastrostomy (PEG) tube placement. [address] [address] OPERATIVE REPORT Name: PAIGE ROB Room #: 205-P [facility] IN M.R.#: [id number] Admission: 10/08/17 Attend Phys: Eder Gillespie MD Discharge: Date of : 51 Report #: [id number] SURGEON: Brittany Young MD. CUPOLA MECHANIC: None. ANESTHESIA: General endotracheal anesthesia. ESTIMATED BLOOD LOSS: Minimal (less than 10 mL). COMPLICATIONS: None appreciated. SPECIMENS: 1. All excised tissue to pathology. 2. Excised bone to microbiology to rule out osteomyelitis. INDICATIONS: The patient is a 62-year-old obese -[place] male who suffered traumatic quadriplegia after falling off a ladder several months ago. The patient underwent C2-T2 laminectomy with fusion and has overwhelming functional quadriplegia with neurogenic bowel and bladder. Unfortunately, the patient did develop a stage 4 sacral decubitus wound that underwent prior debridement and now has evidence of a left ischial decubitus wound in addition to a sacral wound and necessitates replacement of a PEG tube due to severe protein-calorie malnutrition. Prior placed PEG tube was removed approximately one month ago as it has not been used for quite a while and had mold within the tube itself and was nonfunctional. He refused replacement at that time 1 month earlier and now is agreeable to have it replaced once again. DESCRIPTION OF PROCEDURE: After explaining the risks, benefits and alternatives of the procedure with the patient and his family in detail and obtaining consent, the patient was brought to the operating room, supine on his hospital bed. After conducting a thorough timeout procedure verifying correct patient and procedure, the patient was given general endotracheal anesthesia via his indwelling tracheostomy appliance. Once adequate anesthesia was obtained, he was positioned on the operating room table in the prone position with all pressure points appropriately padded. Sacral and left facial wounds were prepped and draped in a standard surgical sterile fashion. The patient's SCDs were hooked up to pneumatic compression device and he was already on an inpatient regimen of IV antibiotic therapy, which is all in line with the SCIP protocol. Electrocautery was now used to circumferentially debride all skin, subcutaneous tissue, and muscle from the sacral and left ischial wounds, carried back to healthy tissue throughout. This was carried at each location to the depths of the wound where there was exposed bone in each and rongeurs were used to debride back bone to healthy bleeding bone. All bone removed was sent to microbiology to rule out osteomyelitis. Hemostasis was assured with electrocautery. Misonix ultrasonic debridement tool was now used to circumferentially debride all remaining nonviable tissue as well as the biofilm [address] [address] OPERATIVE REPORT Name: PAIGE ROB Room #: 205-P [facility] IN M.R.#: [id number] Admission: 10/08/17 Attend Phys: Eder Gillespie MD Discharge: Date of : 51 Report #: [id number] from each wound leaving beefy red healthy viable wound bed in each location. Hemostasis was again achieved with electrocautery and both wounds were packed with sterile saline soaked Kerlix gauze and dressed with ABDs and Medipore tape. The patient was positioned back in the supine position on his hospital bed and the EntomoPharmn upper endoscope was used to intubate the oropharynx. This was traversed down into the gastric lumen where the stomach was fully insufflated. The lights were turned out and we had easy transillumination in the left upper quadrant with manual external ballottement confirming the site of the PEG placement, which was the same site as prior. The site was anesthetized with 5 mL of 1% plain lidocaine and then was prepped and draped in standard surgical sterile fashion. A #11 bladed scalpel was used to create a 7-mm transverse skin incision at this location. The needle-sheath apparatus was directed through this incision site through the anterior gastric wall and the needle was removed. A wire was placed down the sheath, which was grasped with a loop snare, which was then removed via the patient's oropharynx, bringing the wire through with it. The pull type 24-Guinean PEG tube was then affixed to the wire, which was then pulled down the oropharynx and through the anterior gastric and abdominal lawrence. The EGD scope was placed back in the gastric lumen where the internal flange was seen to reside against the gastric wall and the external bumper clamp and end adaptor were then placed in standard fashion showing the external flange to be at 2.5 cm at the skin level without significant compression placed on the gastric wall to prevent erosion. The EGD scope was used to fully desufflate the stomach, was removed via the oropharynx, passed off the field completing the procedure. At the end of the procedure, all instruments, needle and sponge counts were correct. The patient tolerated the procedure without incident, was awakened in the operating room and transitioned to the recovery room in stable condition with no apparent complications. <ELECTRONICALLY SIGNED> By: Brittany Young MD, FACS 10/14/17 [id number] Brittany Young MD, FACS /nt
--- NOTE | ~2017-10-08 | HC ---
[facility] [place] [address] CONSULTATION Name: PAIGE ROB Room #: 205-P [facility] IN M.R.#: [id number] Admission: 10/08/17 Attend Phys: Eder Gillespie MD Discharge: Date of : 51 Report #: [id number] THIS REPORT FOR: //name// CC: FAM unknown Eder Gillespie DATE OF SERVICE: 10/08/2017 REFERRING PROVIDER: Cornelio Delgado MD. REASON FOR CONSULT: Sacral ischial decubitus wounds. HISTORY OF PRESENT ILLNESS: The patient is a 62-year-old obese -[place] African male known to me as he underwent debridement of a stage 4 sacral decubitus wound and diverting loop transverse colostomy in 04/2017. The patient also had a prior PEG tube and tracheostomy performed prior to transfer to our institution and approximately 1 month ago underwent removal of his nonfunctioning PEG tube, whereby he refused replacement to a new tube. The patient stated he was taking adequate p.o. intake at that time and desired to have no PEG tube ongoing. Since that time, the patient has been doing well, but has now been readmitted for wound infection with sepsis and severe protein-calorie malnutrition secondary to his sacral and left ischial decubitus wounds with necrosis and exposed bone. For that reason, I am asked to evaluate for repeat debridement and possible PEG tube replacement. PAST MEDICAL HISTORY: Traumatic quadriplegia with prior respiratory failure, for which he underwent tracheostomy and PEG tube placement. He has now had his nonfunctioning PEG tube removed and not replaced. 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 He has hypertension, diabetes mellitus, hyperlipidemia, GERD, obstructive sleep apnea, gout, depression, coronary artery disease, status post [place], obesity, neurogenic bowel and bladder, and he is status post colostomy placement with prior debridement of his sacral decubitus wound. HOME MEDICATIONS: Include DuoNeb, Prozac, Protonix, Colace, Zofran, senna, allopurinol, Tylenol, Lasix, Lovenox, lisinopril, Xanax, hydrocodone, guaifenesin, linagliptin and Diflucan. He has also been placed on Zosyn. ALLERGIES: MORPHINE. FAMILY HISTORY: Reviewed and noncontributory. SOCIAL HISTORY: Does not utilize tobacco, alcohol or illicit drugs. REVIEW OF SYSTEMS: GENERAL: The patient denies nocturnal fevers or chills. [facility] [address] [place] [address] CONSULTATION Name: PAIGE ROB Room #: 205-P [facility] IN ..#: [id number] Admission: 10/08/17 Attend Phys: Eder Gillespie MD Discharge: Date of : 51 Report #: [id number] HEENT: No change in vision, change in hearing. NECK: No swelling or difficulty swallowing. HEART: No chest pain or palpitations. LUNGS: No cough or shortness of breath. ABDOMEN: No nausea, no vomiting. GENITOURINARY: No dysuria or hematuria. ENDOCRINE: No polyuria, polydipsia. HEMATOLOGIC: No history of bleeding or easy bruising. EXTREMITIES: Significant weakness with limited range of motion due to his paraplegia. NEUROLOGIC: No history of syncope or near syncopal episodes. PSYCHIATRIC: History of depression, anxiety. SKIN AND INTEGUMENT: Stage 4 sacral and left ischial decubitus wounds with necrosis. PHYSICAL EXAMINATION: VITAL SIGNS: Temperature 37.3, pulse 91, respirations 26, blood pressure 120/72. He is 5 feet 2 inches tall and weighs 174 pounds. GENERAL: Alert and oriented, in no acute distress. HEENT: Normocephalic, atraumatic. Right pupil equal, round, reactive to light. Left eye has been enucleated, has prosthetic in place. NECK: Supple, without lymphadenopathy. Tracheostomy site is clean. HEART: Regular rate and rhythm. LUNGS: Clear to auscultation bilaterally. ABDOMEN: Soft, nontender, nondistended. Colostomy is pink, patent and functional. PEG tube site is healed. GENITOURINARY: Normal external male genitalia with suprapubic catheter in place. EXTREMITIES: No clubbing, cyanosis or edema. NEUROLOGIC: Cranial nerves 2-12 are grossly intact. He does have incomplete quadriplegia. PSYCHIATRIC: Normal mood and affect. SKIN AND INTEGUMENT: Stage 4 left ischial and sacral decubitus wounds with exposed bone and necrotic tissue. There is some malodorous drainage as well. LABORATORY AND X-RAY DATA: CBC shows white blood cell count 13,700, hemoglobin 8.2, platelets 258,000. Creatinine 0.6, albumin is 1.7. Chest x-ray shows pneumonia in the left lung base. MRI of the sacrum shows deep ulcerations with osteomyelitis in the left ischium. ASSESSMENT AND PLAN: A 62-year-old overweight -[place] African male who has incomplete quadriplegia and has ongoing issues with stage 4 left ischial and sacral decubitus wounds with exposed bone and necrosis. In addition, the patient has severe protein-calorie malnutrition and a new finding of pneumonia in the left lung base. At this time, the dietitians have been asked to evaluate the patient for calorie count as he still not desiring of the PEG tube; however, [address] [place] [address] CONSULTATION Name: PAIGE ROB Room #: 205-P [facility] IN M.R.#: [id number] Admission: 10/08/17 Attend Phys: Eder Gillespie MD Discharge: Date of : 53 Report #: [id number] I feel that this may be paramount to proper wound healing for him in an ongoing fashion. In addition, he is on antibiotics for his pneumonia and will necessitate debridement of his sacral and left ischial wounds. We will therefore continue antibiotics with pulmonary toilet for improvement of his pneumonia while awaiting calorie count and ultimately will proceed to the operating room for debridement of his left ischium and sacral decubitus wounds as well as placement of a PEG tube if warranted at that time, and the patient is agreeable to that. I sincerely appreciate this consult. I will follow along and leave any further recommendations in the patient's chart as appropriate. <ELECTRONICALLY SIGNED> By: Brittany Young MD, FACS 10/09/17 1704 [id number] [id number] Brittany Young MD, FACS /nt
--- NOTE | ~2017-10-08 | HC ---
[facility] [place] [address] CONSULTATION Name: PAIGE ROB Room #: 205-[facility] IN M.R.#: [id number] Admission: 10/08/17 Attend Phys: Eder Gillespie MD Discharge: Date of : 53 Report #: [id number] THIS REPORT FOR: //name// CC: FAM unknown Eder Gillespie DATE OF SERVICE: 10/08/2017 CHIEF COMPLAINT: Infected pressure ulcerations. HISTORY OF PRESENT ILLNESS: This is a 62-year-old male patient with a history of traumatic quadriplegia after falling from a step ladder last January. He has previously known sacral pressure ulcer and ischial pressure ulceration. He is admitted with difficulty breathing as well as increased drainage and odor from his pressure ulcerations. He previously had a diverting colostomy and debridement. He has had a previous PEG tube that apparently became lodged in the subcutaneous tissue and was subsequently removed. He states he is trying to eat. He has a tracheostomy with a speaking valve. PAST MEDICAL HISTORY: Once again for quadriplegia secondary to cervical spinal cord injury. Hypertension, hyperlipidemia, diabetes mellitus, previous tracheostomy. MEDICATIONS: Include Prozac, Protonix, Colace, Zofran, Zyloprim, senna, Tylenol, Lasix, Lovenox, Zestril, Xanax, Robitussin, Tradjenta and Diflucan. SOCIAL HISTORY: Negative for alcohol use. He is a prior smoker. REVIEW OF SYSTEMS: CONSTITUTIONAL: The patient has had a recent fever and chills. ENT: The patient denies earache, nasal drainage, sore throat. Has tracheostomy. PULMONARY: The patient denies cough or shortness of breath. GASTROINTESTINAL: The patient denies nausea, vomiting or abdominal pain. ORTHOPEDIC: The patient is aware of pressure ulcerations. Other systems in a 14-point review of systems are negative at this time. PHYSICAL EXAMINATION: VITAL SIGNS: At this time include respiratory rate of 26, blood pressure 120/70, temperature 99.1. GENERAL: This is a chronically ill-appearing male patient who appears to be in mild discomfort. HEAD: Normocephalic. NECK: Demonstrates tracheostomy. LUNGS: Diminished. HEART: Regular. [address] [address] CONSULTATION Name: PAIGE ROB Room #: [facility] ADM IN M.R.#: [id number] Admission: 10/08/17 Attend Phys: Eder Gillespie MD Discharge: Date of : 51 Report #: [id number] ABDOMEN: Soft. Colostomy noted. EXTREMITIES: Pelvic region demonstrates stage 4 pressure ulcers in the sacrum and left ischium. The sacrum is fairly clean. There was exposed bone in the base of left ischium. Bone is palpable in the base, it is covered with a black eschar and is quite malodorous. NEUROLOGIC: The patient is alert and oriented. He has quadriplegia. LABORATORY DATA: Sodium 142, potassium 2.9, chloride 108, CO2 of 23, BUN 5, creatinine 0.6, glucose 108. White blood cell count 13.7 with hemoglobin of 8.2, hematocrit of 24.9, albumin is very low at 1.7, this is down from his last measurement in 08/2017 when it was 2.1. CLINICAL IMPRESSION: 1. Stage 4 pressure ulcer of the sacrum with exposed bone, status post previous debridement. 2. Stage 4 pressure ulcer of the left ischium with evidence of ongoing wound infection. 3. Severe protein-calorie malnutrition. 4. Quadriplegia secondary to spinal cord injury. RECOMMENDATIONS: At this point in time, we will start with 0.5 strength Dakin's moist gauze dressing b.i.d. to the affected areas. He will need low air loss mattress, q. 2 hour turning and repositioning. He will need aggressive nutritional support and it may be worthwhile to consider PEG tube placement again to better accomplish this. He may benefit from a myocutaneous flap at some point in time. We will need to get his infection under better control and nutritionally he will definitely need to be improved before he would be an eligible candidate for a myocutaneous flap. We will consult General Surgery for surgical debridement as well as possible placement of a feeding tube. Again, I appreciate being asked to see the patient in consultation. <ELECTRONICALLY SIGNED> By: Cornelio Delgado MD 10/09/17 1758 [id number] [id number] Cornelio Delgado MD /nt
[2017-10-08 03:36] VITALS: BP 89/41
[2017-10-08 04:55] LABS: HEMATOCRIT 24.9 % (42.0-52.0); HEMOGLOBIN 8.2 gm/dL (14.0-18.0); MCH 28.3 pg (26.0-34.0); MCHC 32.9 g/dL (28.0-37.0); MCV 86.2 fL (80.0-100.0); RBC 2.88 mil/uL (4.50-6.00); RDW 16.5 % (10.5-14.5); WBC 13.7 thou/uL (4.0-11.0)
[2017-10-08 05:11] LABS: CALCIUM 7.3 mg/dL (8.5-10.1); CREATININE 0.6 mg/dL (0.7-1.3)
[2017-10-08 05:16] LABS: ALBUMIN 1.7 g/dL (3.4-5.0); TOTAL BILIRUBIN 0.4 mg/dL (<0.1-1.0); TOTAL PROTEIN 5.4 g/dL (6.4-8.2)
[2017-10-08 05:22] LABS: POTASSIUM 2.9 mmol/L (3.5-5.1)
[2017-10-08 07:25] VITALS: BP 120/72
[2017-10-08 13:48] VITALS: BP 207/118
[2017-10-08 15:50] VITALS: BP 113/54
[2017-10-08] MEDS ORDERED: REMERON15 MG PO (18:09)
[2017-10-08] MEDS ORDERED: K-DUR 20 MEQ T20 MEQ PO (18:09)
[2017-10-08 20:17] VITALS: BP 84/47
[2017-10-08 20:42] LABS: CALCIUM 8.3 mg/dL (8.5-10.1); CREATININE 0.6 mg/dL (0.7-1.3); POTASSIUM 3.5 mmol/L (3.5-5.1)
[2017-10-08 23:58] VITALS: BP 99/54
[2017-10-09 02:33] LABS: URINE BILIRUBIN NEGATIVE (Negative); URINE BLOOD NEGATIVE (Negative); URINE CLARITY CLEAR; URINE COLOR YELLOW; URINE GLUCOSE-RANDOM* NEGATIVE (Negative); URINE KETONES NEGATIVE (Negative); URINE LEUKOCYTES-REFLEX NEGATIVE (Negative); URINE PROTEIN (DIPSTICK) NEGATIVE (Negative); URINE SPECIFIC GRAVITY <= 1.005 (1.005-1.035); URINE UROBILINOGEN 0.2 E.U./dl (0.2-1.0)
[2017-10-09 02:46] LABS: URINE NITRITE-REFLEX POSITIVE (Negative)
[2017-10-09 02:58] LABS: BACTERIA-REFLEX 1-9 Few /HPF (None Seen); CASTS None Seen /LPF (None Seen); CRYSTALS None Seen /LPF (None Seen); MUCUS None Seen strn/LPF (None Seen); SQUAMOUS None Seen /LPF (0-3); URINE RBC None Seen /HPF (0-2); URINE WBC-REFLEX None Seen /HPF (0-5)
[2017-10-09 06:06] VITALS: BP 134/80
[2017-10-09 07:55] VITALS: BP 115/70
[2017-10-09 11:15] VITALS: BP 120/76
[2017-10-09 15:35] VITALS: BP 136/78
[2017-10-09 20:41] VITALS: BP 116/60
[2017-10-09 23:50] VITALS: BP 116/61
[2017-10-10 04:32] VITALS: BP 122/65
[2017-10-10 07:40] VITALS: BP 129/70
[2017-10-10 11:22] VITALS: BP 148/73
[2017-10-10 15:16] VITALS: BP 159/76
[2017-10-10 19:21] LABS: BE(vivo) -3.4 mmol/L (-2 to +3); HCO3 19.9 mmol/L (22.0-26.0); PCO2 29.3 mmHg (35.0-45.0); PO2 99.6 mmHg (80.0-100.0); pH 7.449 (7.360-7.450); sO2 97.9 % (92.0-98.0)
[2017-10-10 19:40] VITALS: BP 146/74
[2017-10-11 04:44] VITALS: BP 170/79
[2017-10-11 05:06] LABS: HEMATOCRIT 21.8 % (42.0-52.0); HEMOGLOBIN 7.4 gm/dL (14.0-18.0); MCH 29.2 pg (26.0-34.0); MCHC 33.9 g/dL (28.0-37.0); MCV 86.2 fL (80.0-100.0); RBC 2.53 mil/uL (4.50-6.00); RDW 16.2 % (10.5-14.5); WBC 8.2 thou/uL (4.0-11.0)
[2017-10-11 05:14] LABS: CREATININE 0.6 mg/dL (0.7-1.3)
[2017-10-11 07:11] VITALS: BP 147/84
[2017-10-11 11:18] VITALS: BP 135/75
[2017-10-11 16:37] VITALS: BP 148/77
[2017-10-11 19:05] VITALS: BP 149/81
[2017-10-12] VITALS (10 sets, daily range): BP systolic 127–173; BP diastolic 72–94
[2017-10-12 06:19] LABS: HEMATOCRIT 23.3 % (42.0-52.0); HEMOGLOBIN 7.8 gm/dL (14.0-18.0); MCH 28.9 pg (26.0-34.0); MCHC 33.7 g/dL (28.0-37.0); MCV 85.9 fL (80.0-100.0); RBC 2.71 mil/uL (4.50-6.00); RDW 16.2 % (10.5-14.5)
[2017-10-12 06:38] LABS: CALCIUM 8.7 mg/dL (8.5-10.1); CREATININE 0.6 mg/dL (0.7-1.3); POTASSIUM 3.7 mmol/L (3.5-5.1)
[2017-10-13 03:15] VITALS: BP 152/81
[2017-10-13 05:30] VITALS: BP 155/82
[2017-10-13 05:38] LABS: HEMOGLOBIN 7.9 gm/dL (14.0-18.0); MCH 27.9 pg (26.0-34.0); MCHC 32.7 g/dL (28.0-37.0); MCV 85.3 fL (80.0-100.0); RBC 2.82 mil/uL (4.50-6.00); RDW 15.5 % (10.5-14.5); WBC 11.2 thou/uL (4.0-11.0)
[2017-10-13 05:46] LABS: CALCIUM 8.5 mg/dL (8.5-10.1); CREATININE 0.6 mg/dL (0.7-1.3); POTASSIUM 3.5 mmol/L (3.5-5.1)
[2017-10-13 07:49] VITALS: BP 130/75
[2017-10-13 11:48] VITALS: BP 123/76
[2017-10-13 15:15] VITALS: BP 152/79
[2017-10-13 19:43] VITALS: BP 101/55
[2017-10-14 03:45] VITALS: BP 170/79
[2017-10-14 07:13] LABS: HEMATOCRIT 23.9 % (42.0-52.0); HEMOGLOBIN 7.9 gm/dL (14.0-18.0); MCH 28.3 pg (26.0-34.0); MCV 85.6 fL (80.0-100.0); RBC 2.79 mil/uL (4.50-6.00); RDW 15.5 % (10.5-14.5); WBC 12.9 thou/uL (4.0-11.0)
[2017-10-14 07:27] LABS: CALCIUM 8.4 mg/dL (8.5-10.1); CREATININE 0.9 mg/dL (0.7-1.3); POTASSIUM 3.2 mmol/L (3.5-5.1)
[2017-10-14 07:55] VITALS: BP 103/62
[2017-10-14 11:36] VITALS: BP 118/63
[2017-10-14 16:27] VITALS: BP 143/76
[2017-10-14 19:30] VITALS: BP 114/66
[2017-10-14 23:57] VITALS: BP 99/57
[2017-10-15 06:17] VITALS: BP 99/58
[2017-10-15 08:00] VITALS: BP 105/55
[2017-10-15 12:00] VITALS: BP 110/55
[2017-10-15 16:30] VITALS: BP 101/55
[2017-10-15 20:49] VITALS: BP 102/41
[2017-10-16 00:45] VITALS: BP 130/62
[2017-10-16 08:03] VITALS: BP 126/74
[2017-10-16 12:11] VITALS: BP 126/74
[2017-10-16 16:30] VITALS: BP 115/62
[2017-10-16] MEDS ORDERED: ZOSYN 4.54.5 GM/101 IV (17:05)
== END 2017-10-16 20:11 | DRG 853 ==
LOC: 2N 03:21
PROVIDERS: Internal Medicine Pulmonary Disease; Nurse Practitioner Family; Specialist; Surgery
PROC: 0QB30ZZ Excision of Left Pelvic Bone, Open Approach (ICD-10-PCS; principal; 2017-10-12)
PROC: 0DH63UZ Insertion of Feeding Device into Stomach, Percutaneous Approach (ICD-10-PCS; principal; 2017-10-12)
PROC: 0QB10ZZ Excision of Sacrum, Open Approach (ICD-10-PCS; principal; 2017-10-12)
PROC: 02HV33Z Insertion of Infusion Device into Superior Vena Cava, Percutaneous Approach (ICD-10-PCS; principal; 2017-10-12)
DX: A41.9 Sepsis, unspecified organism (principal); L89.154 Pressure ulcer of sacral region, stage 4; L89.894 Pressure ulcer of other site, stage 4; G82.50 Quadriplegia, unspecified; E43 Unspecified severe protein-calorie malnutrition; J96.20 Acute and chronic respiratory failure, unspecified whether with hypoxia or hypercapnia; J15.1 Pneumonia due to Pseudomonas; M46.28 Osteomyelitis of vertebra, sacral and sacrococcygeal region; N39.0 Urinary tract infection, site not specified; E66.9 Obesity, unspecified; I10 Essential (primary) hypertension; E78.5 Hyperlipidemia, unspecified; E11.9 Type 2 diabetes mellitus without complications; K21.9 Gastro-esophageal reflux disease without esophagitis; G47.33 Obstructive sleep apnea (adult) (pediatric); M10.9 Gout, unspecified; F32.9 Major depressive disorder, single episode, unspecified; I25.10 Atherosclerotic heart disease of native coronary artery without angina pectoris; F41.9 Anxiety disorder, unspecified; N31.9 Neuromuscular dysfunction of bladder, unspecified; D63.8 Anemia in other chronic diseases classified elsewhere; Z88.6 Allergy status to analgesic agent; Z79.899 Other long term (current) drug therapy; Z87.891 Personal history of nicotine dependence; Z93.0 Tracheostomy status; Z93.3 Colostomy status; I25.2 Old myocardial infarction; Z98.1 Arthrodesis status; Z68.34 Body mass index [BMI] 34.0-34.9, adult
CPT/HCPCS: 10081; 27000; 50010; 50101; 50386; 50403; 62110; 62900; 70005

== ENCOUNTER 2017-10-19 12:39 | Inpatient (IN) | payer OTHER ==
[2017-10-19] VITALS (12 sets, daily range): BP systolic 89–130; BP diastolic 55–81
[~2017-10-19] VITALS: Ht 154.9 cm; Wt 79.5 kg
--- NOTE | ~2017-10-19 | HC ---
[facility] [place] [address] CONSULTATION Name: PAIGE ROB Room #: [address] [place] [address] IN M.R.#: [id number] Admission: 10/19/17 Attend Phys: Ihsan Madera Discharge: Date of : 51 Report #: [id number] THIS REPORT FOR: //name// CC: FAM unknown Ihsan Madera DATE OF SERVICE: 10/22/2017 CHIEF COMPLAINT: Multiple pressure ulcerations. HISTORY OF PRESENT ILLNESS: This is a 62-year-old white male patient, who is well known to me from recent hospitalization. He has a history of quadriplegia with stage IV pressure ulceration of the sacrum and left ischium. He has undergone recent surgical debridement. He was readmitted to the hospital with pneumonia. He has had recent PEG tube placed and has had previous diverting colostomy. I have been asked to see him with regard to wound care. The patient is in the ICU. He states that he is aware of moderate sputum production. States he is mildly short of breath, but feeling somewhat better. PAST MEDICAL HISTORY: The patient's past medical history is unchanged from his prior history and physical exam. FAMILY HISTORY: Noncontributory. SOCIAL HISTORY: Noncontributory. ALLERGIES: MORPHINE. MEDICATIONS: Include Zyvox, Zosyn and aerosolized tobramycin. REVIEW OF SYSTEMS: CONSTITUTIONAL: The patient does complain of fever, denies chills. ENT: The patient denies earache, nasal drainage or sore throat. CARDIOVASCULAR: The patient denies chest pain or palpitations, diaphoresis. PULMONARY: The patient does complain of shortness of breath with sputum production and tracheal secretions. GASTROINTESTINAL: The patient has a colostomy with moderate stool from his colostomy. PHYSICAL EXAMINATION: VITAL SIGNS: At this time include pulse 86, respiratory rate 29, blood pressure 146/72, temperature 97.3. GENERAL: This is a chronically ill-appearing male patient who appears to be in minimal distress. HEENT: Head is normocephalic. Nose and throat clear. NECK: Demonstrates tracheostomy with T tube in place. [facility] [address] [place] [address] CONSULTATION Name: PAIGE ROB Room #: 243-P [facility] IN M.R.#: [id number] Admission: 10/19/17 Attend Phys: Ihsan Madera Discharge: Date of : 51 Report #: [id number] LUNGS: Diminished. HEART: Regular rhythm. ABDOMEN: Soft. Colostomy, suprapubic catheter and PEG tube are noted. EXTREMITIES: The pelvic region demonstrates a stage 4 pressure ulcer to the sacrum that is relatively clean and granulating with a small amount of exposed bone, left ischial pressure ulcer is cotton cleaner than when I last saw him following the surgical debridement. There is about 20% necrotic tissue and 80% healthy granulation tissue. There also appears to be a new area of breakdown just lateral to the ischial ulcer involving the left gluteal region. This is unstageable, covered with mostly yellow fibrin, depth is indeterminate. NEUROLOGIC: The patient is quadriplegic. LABORATORY DATA: Includes sodium 144, potassium 3.8, chloride 110, CO2 of 21, BUN 10, creatinine 0.7, glucose 112. White blood cell count is 10.3 with hemoglobin of 8.2, hematocrit 24.1. CLINICAL IMPRESSION: 1. Stage 4 pressure ulceration of the sacrum, improved. 2. Stage 4 pressure in the left ischium improved following surgical debridement. 3. New area of pressure ulceration to the left gluteal region, unstageable. 4. Quadriplegia secondary to spinal cord injury. 5. Moderate protein-calorie malnutrition, now status post PEG tube placement. 6. Question healthcare-associated pneumonia. RECOMMENDATIONS: At this point in time, we will recommend continued broad spectrum antibiotic therapy and continue all medications. He will be in an ICU pressure releasing bed. He will still need turning and repositioning every 2 hours. Recommend 1/2 strength Dakin's moist gauze packing to the pressure ulcers on a daily basis. Prevalon boots to both lower extremities for pressure prophylaxis. He will need aggressive nutritional support and thankfully he has a PEG tube now, so that we can provide tube feeding to maximize his chance of wound healing. Once, he is little bit more stable and his wounds are cleaned up somewhat, we could consider wound VAC. I appreciate being asked to see him again in consultation. <ELECTRONICALLY SIGNED> By: Cornelio Delgado MD 10/23/17 1522 [id number] Cornelio Delgado MD /nt
--- NOTE | ~2017-10-19 | HC ---
[facility] [place] [address] CONSULTATION Name: PAIGE ROB Room #: [facility] IN M.R.#: [id number] Admission: 10/19/17 Attend Phys: Ihsan Madera Discharge: Date of : 51 Report #: [id number] THIS REPORT FOR: //name// CC: FAM unknown Ihsan Madera DATE OF SERVICE: 10/19/2017 TYPE OF REPORT: General surgery consultation. REFERRING PROVIDER: Ihsan Madera M.D. REASON FOR CONSULTATION: Sacral and ischial decubitus wounds. 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 The patient was recently discharged to a assisted and has returned with the wound VAC that was nonfunctioning and was found to have a scant recurrent necrosis in his left ischial wound for which I am asked to reevaluate once again. PAST MEDICAL HISTORY: Traumatic quadriplegia, hypertension, diabetes mellitus, hyperlipidemia, obstructive sleep apnea, coronary artery disease status post NM and obesity. HOME MEDICATIONS: DuoNeb, Prozac, Protonix, Colace, Zofran, senna, allopurinol, Tylenol, Lasix, Lovenox, lisinopril, Xanax, hydrocodone, guaifenesin, linagliptin and Diflucan. ALLERGIES: MORPHINE. FAMILY HISTORY: Reviewed and noncontributory. SOCIAL HISTORY: Does not utilize tobacco, alcohol or illicit drugs. REVIEW OF SYSTEMS: GENERAL: The patient denies nocturnal fevers or chills. HEENT: No change in vision or change in hearing. NECK: No swelling or difficulty swallowing. HEART: No chest pain or palpitations. LUNGS: He has been having minor difficulty breathing with a recent pneumonia. ABDOMEN: No nausea and no vomiting. GENITOURINARY: No dysuria or hematuria. ENDOCRINE: No polyuria or polydipsia. HEMATOLOGICAL: No history of bleeding or easy bruising. [facility] [address] [place] [address] CONSULTATION Name: PAIGE ROB Room #: 243-P [facility] IN M.R.#: [id number] Admission: 10/19/17 Attend Phys: Ihsan Madera Discharge: Date of : 51 Report #: [id number] EXTREMITIES: Significant weakness with limited range of motion due to his incomplete quadriplegia. NEUROLOGICAL: No history of syncope or near-syncopal episodes. PSYCHIATRIC. History of depression and anxiety. SKIN AND INTEGUMENT: Stage IV sacral and left ischial decubitus wounds. PHYSICAL EXAMINATION: VITAL SIGNS: Temperature 37.8, pulse 92, respirations 20 and blood pressure 128/76. He is 5 feet 2 inches tall and weighs 174 pounds. GENERAL: Alert and oriented, in no acute distress. HEENT: Normocephalic and atraumatic. Right pupil is equal, round and reactive to light. NECK: Supple, without lymphadenopathy. Tracheostomy site is clean. HEART: Regular rate and rhythm. LUNGS: Decreased air entry at the bases bilaterally. ABDOMEN: Soft, nontender and nondistended. Colostomy is pink, patent and functional. PEG tube is intact and functioning. GENITOURINARY: Normal external male genitalia with suprapubic catheter in place. EXTREMITIES: No clubbing, cyanosis or edema. NEUROLOGICAL: Cranial nerves 2 through 12 are grossly intact. He does have incomplete quadriplegia. PSYCHIATRIC: Normal mood and affect. SKIN AND INTEGUMENT: Stage 4 sacral and left ischial wounds, have recently just been redressed and the dressings were not taken down; however, these were clean a few days ago and nursing states that they have scant necrosis once again. No photos have been taken, however and the patient is declining me in taking the dressing down at this time due to discomfort from recent dressing changes. LABORATORY AND X-RAY DATA: CBC shows white blood cell count 16.6 thousand; hemoglobin 7.0 and platelets 526,000. Creatinine 1.0. Albumin is 1.5. INR 1.1. ASSESSMENT AND PLAN: A 62-year-old obese male with stage 4 sacral and left ischial decubitus wounds with apparent recurrent nonviable tissue present. At this time, I recommend continuation of all current cares including IV antibiotics per the direction of Infectious Disease, offloading his wounds, optimizing nutritional status and local wound care. I will take the dressings down and visualized the wounds at the next available time point as the patient is refusing ongoing dressing changes today at this time. If the patient is deemed to necessitate repeat debridement, I will attempt to do so at the first available time point. [address] [address] CONSULTATION Name: PAIGE ROB Room #: 243-P [facility] IN M.R.#: [id number] Admission: 10/19/17 Attend Phys: Ihsan Felix Santy Discharge: Date of : 51 Report #: [id number] Sincerely appreciate the consult. I will follow along and leave any further recommendations in the patient's chart as appropriate. <ELECTRONICALLY SIGNED> By: Brittany Young MD, FACS 10/22/17 1355 [id number] 1218 Brittany Young MD, FACS /nt
--- NOTE | ~2017-10-19 | HC ---
[facility] [place] [address] CONSULTATION Name: PAIGE ROB Room #: [facility] IN M.R.#: [id number] Admission: 10/19/17 Attend Phys: Ihsan Madera Discharge: Date of : 51 Report #: [id number] THIS REPORT FOR: //name// CC: FAM unknown Ihsan Madera TYPE OF REPORT: Infectious diseases consultation. REASON FOR CONSULTATION: I was asked to evaluate concerning healthcare-associated pneumonia. HISTORY OF PRESENT ILLNESS: The patient was a 62-year old who was hospitalized here from 10/08/2017 through 10/16/2017 for sacral and left ischial wound infection and osteomyelitis. He is now postoperative day #7 from debridement. He was on Zosyn. Discharged to [facility]. Within 24 hours, developed fever and was transferred to [facility] and then to [facility]. He is now in the Intensive Care Unit. His blood pressure has been in the 90 systolic with moderate tracheal secretions. He remains on his trach T-piece. He is receiving IV fluids and was given vancomycin in addition to Zosyn prior to transfer. REVIEW OF SYSTEMS: Notes moderate amount of tracheal secretions. Loose stools from his colostomy. Suprapubic catheter has been functioning. No change in his wounds. Fever has improved. PAST MEDICAL HISTORY: Unchanged from his history and physical and that of my previous consultation. FAMILY HISTORY: Unchanged from his history and physical and that of my previous consultation. SOCIAL HISTORY: Unchanged from his history and physical and that of my previous consultation. ALLERGIES: To MORPHINE. MEDICATIONS: Now including Zyvox, Zosyn and aerosolized tobramycin. PHYSICAL EXAMINATION: VITAL SIGNS: Temperature 99.8, blood pressure 118/66, MAP of 82 and pulse 83. GENERAL: He was alert and cooperative. He is on 50% T-tube. Wounds to his sacrum were dressed. LUNGS: Coarse bilaterally. HEART: Regular. ABDOMEN: Soft with loose stool from his colostomy. LABORATORY DATA: Lactate 0.9, sodium 138, potassium 4.1, bicarbonate 25 and [facility] [address] [place] [address] CONSULTATION Name: PAIGE ROB Room #: [facility] IN ..#: [id number] Admission: 10/19/17 Attend Phys: Ihsan Madera Discharge: Date of : 51 Report #: [id number] creatinine 0.9. Urinalysis: Few wbc's and few bacteria. Procalcitonin 4.4. Liver function test normal, AST 44. Hemoglobin 7; WBC 16.6 and platelet count 526,000. Differential, 85% segs and 6% lymphocytes. Cultures of blood, urine and sputum are pending. Previous sputum culture from 10/09/2017 showed Pseudomonas aeruginosa resistant to imipenem, intermediate to cefepime. Buttock wound from 10/08/2017 had shown Bacteroides and mixed de. RADIOLOGICAL DATA: Chest x-ray, left lower lobe infiltrate. IMPRESSION: A 62-year-old quadriparetic gentleman with chronic respiratory failure, with a tracheostomy, now with left lower lobe pneumonia, fever and sepsis. Has chronic wounds that have recently been debrided with underlying osteomyelitis. PLAN: To continue his antibiotic therapy, wound care and preparation for a myocutaneous flap. With this setback, we will need continued antibiotic coverage for healthcare-associated infection. He has loose stools, but previous C. difficile PCR was negative. I am suspecting pulmonary infection as cause of his decline. He was having issues clearing his secretions during his last hospital stay. We will continue with Zyvox, Zosyn and aerosolized tobramycin. Pulmonary toilet. Await culture results. <ELECTRONICALLY SIGNED> By: Chon Alvarez MD 10/22/17 0835 [id number] Chon Alvraez MD /nt
[~2017-10-19 12:39] MED LIST changes: +K-DUR 20 MEQ T20 MEQ PO; +REMERON15 MG PO; +ZOSYN 4.54.5 GM/101 IV
[2017-10-19 15:33] LABS: BE(vivo) -0.2 mmol/L (-2 to +3); HCO3 23.7 mmol/L (22.0-26.0); PO2 77.1 mmHg (80.0-100.0); pH 7.449 (7.360-7.450)
[2017-10-19 15:55] LABS: ABSOLUTE NEUTROPHILS 14.2 thou/uL (1.4-8.2); BASOPHILS 0.3 % (0.0-2.0); EOSINOPHILS 0.6 % (0.0-3.0); HEMATOCRIT 21.3 % (42.0-52.0); LYMPHOCYTES 6.7 % (24.0-44.0); MCHC 33.1 g/dL (28.0-37.0); MCV 84.5 fL (80.0-100.0); MONOCYTES 6.6 % (1.0-8.0); PLATELET COUNT 526 thou/uL (150-400); POLYS 85.8 % (36.0-66.0); RBC 2.52 mil/uL (4.50-6.00); RDW 15.6 % (10.5-14.5); WBC 16.6 thou/uL (4.0-11.0)
[2017-10-19 16:02] LABS: CALCIUM 8.5 mg/dL (8.5-10.1); POTASSIUM 4.5 mmol/L (3.5-5.1)
[2017-10-19 16:08] LABS: ALBUMIN 1.5 g/dL (3.4-5.0); TOTAL BILIRUBIN 0.2 mg/dL (<0.1-1.0); TOTAL PROTEIN 6.5 g/dL (6.4-8.2)
[2017-10-19 16:10] LABS: APTT 32.2 Seconds (24.5-32.8); FIBRINOGEN 509.7 mg/dL (210-360); INR 1.1; PROTIME 11.4 Seconds (9.3-11.4)
[2017-10-19 16:31] LABS: URINE BILIRUBIN NEGATIVE (Negative); URINE BLOOD NEGATIVE (Negative); URINE CLARITY CLEAR; URINE COLOR YELLOW; URINE GLUCOSE-RANDOM* NEGATIVE (Negative); URINE KETONES NEGATIVE (Negative); URINE NITRITE-REFLEX NEGATIVE (Negative); URINE PROTEIN (DIPSTICK) NEGATIVE (Negative); URINE UROBILINOGEN 0.2 E.U./dl (0.2-1.0)
[2017-10-19 16:32] LABS: URINE LEUKOCYTES-REFLEX 1+ (Negative)
[2017-10-19 16:39] LABS: BACTERIA-REFLEX 1-9 Few /HPF (None Seen); CASTS None Seen /LPF (None Seen); CRYSTALS None Seen /LPF (None Seen); SQUAMOUS None Seen /LPF (0-3); URINE RBC None Seen /HPF (0-2); URINE WBC-REFLEX 6-15 Few /HPF (0-5)
[2017-10-19 20:06] LABS: CREATININE 0.9 mg/dL (0.7-1.3); POTASSIUM 4.1 mmol/L (3.5-5.1)
[2017-10-20] VITALS (33 sets, daily range): BP systolic 90–154; BP diastolic 48–95
[2017-10-20 00:45] LABS: CALCIUM 7.9 mg/dL (8.5-10.1); CREATININE 0.9 mg/dL (0.7-1.3); POTASSIUM 3.9 mmol/L (3.5-5.1)
[2017-10-20 04:51] LABS: EOSINOPHILS 1.3 % (0.0-3.0); RBC 2.43 mil/uL (4.50-6.00)
[2017-10-20 04:53] LABS: ABSOLUTE NEUTROPHILS 10.8 thou/uL (1.4-8.2); BASOPHILS 0.9 % (0.0-2.0); HEMATOCRIT 20.8 % (42.0-52.0); HEMOGLOBIN 6.9 gm/dL (14.0-18.0); LYMPHOCYTES 7.7 % (24.0-44.0); MCH 28.3 pg (26.0-34.0); MCV 85.6 fL (80.0-100.0); MONOCYTES 6.7 % (1.0-8.0); POLYS 83.4 % (36.0-66.0); RDW 15.5 % (10.5-14.5)
[2017-10-20 04:59] LABS: PLATELET COUNT 428 thou/uL (150-400)
[2017-10-20 05:02] LABS: CALCIUM 8.3 mg/dL (8.5-10.1); CREATININE 0.8 mg/dL (0.7-1.3); POTASSIUM 3.7 mmol/L (3.5-5.1)
[2017-10-21] VITALS (26 sets, daily range): BP systolic 93–151; BP diastolic 52–89
[2017-10-21 06:54] LABS: HEMATOCRIT 20.1 % (42.0-52.0)
[2017-10-21 06:56] LABS: ABSOLUTE NEUTROPHILS 10.2 thou/uL (1.4-8.2); BASOPHILS 0.9 % (0.0-2.0); EOSINOPHILS 1.8 % (0.0-3.0); HEMOGLOBIN 6.6 gm/dL (14.0-18.0); LYMPHOCYTES 7.5 % (24.0-44.0); MCH 28.3 pg (26.0-34.0); MCHC 32.8 g/dL (28.0-37.0); MCV 86.3 fL (80.0-100.0); MONOCYTES 7.3 % (1.0-8.0); PLATELET COUNT 462 thou/uL (150-400); POLYS 82.5 % (36.0-66.0); RBC 2.32 mil/uL (4.50-6.00); RDW 15.6 % (10.5-14.5); WBC 12.3 thou/uL (4.0-11.0)
[2017-10-21 07:02] LABS: CALCIUM 8.1 mg/dL (8.5-10.1); CREATININE 0.8 mg/dL (0.7-1.3); POTASSIUM 3.6 mmol/L (3.5-5.1)
[2017-10-21 16:22] LABS: HEMATOCRIT 24.8 % (42.0-52.0); HEMOGLOBIN 8.4 gm/dL (14.0-18.0)
[2017-10-21 16:28] LABS: CREATININE 0.9 mg/dL (0.7-1.3); POTASSIUM 3.4 mmol/L (3.5-5.1)
[2017-10-22] VITALS (24 sets, daily range): BP systolic 86–165; BP diastolic 48–119
[2017-10-22 04:12] LABS: ABSOLUTE NEUTROPHILS 8.1 thou/uL (1.4-8.2); BASOPHILS 0.7 % (0.0-2.0); EOSINOPHILS 2.9 % (0.0-3.0); HEMATOCRIT 24.1 % (42.0-52.0); HEMOGLOBIN 8.2 gm/dL (14.0-18.0); LYMPHOCYTES 9.7 % (24.0-44.0); MCH 29.5 pg (26.0-34.0); MCV 86.8 fL (80.0-100.0); MONOCYTES 7.5 % (1.0-8.0); PLATELET COUNT 504 thou/uL (150-400); POLYS 79.2 % (36.0-66.0); RBC 2.77 mil/uL (4.50-6.00); WBC 10.3 thou/uL (4.0-11.0)
[2017-10-22 04:29] LABS: ALBUMIN 1.4 g/dL (3.4-5.0); CALCIUM 8.3 mg/dL (8.5-10.1); CREATININE 0.7 mg/dL (0.7-1.3); PHOSPHORUS 2.4 mg/dL (2.5-4.9); POTASSIUM 3.8 mmol/L (3.5-5.1)
[2017-10-23] VITALS (19 sets, daily range): BP systolic 94–162; BP diastolic 51–86
[2017-10-23] MEDS ORDERED: TOBRAMYCIN300 MG/7.5 INH (12:20)
[2017-10-23] MEDS ORDERED: LINEZOLID600 MG/300 IV (12:21)
[2017-10-23] MEDS ORDERED: REGLAN 10 MG TA10 MG PO (12:33)
== END 2017-10-23 18:50 | DRG 871 ==
LOC: ICU 12:39
PROVIDERS: Hospitalist
PROC: 30233N1 Transfusion of Nonautologous Red Blood Cells into Peripheral Vein, Percutaneous Approach (ICD-10-PCS; principal; 2017-10-21)
DX: A41.9 Sepsis, unspecified organism (principal); S14.152A Other incomplete lesion at C2 level of cervical spinal cord, initial encounter; L89.154 Pressure ulcer of sacral region, stage 4; L89.324 Pressure ulcer of left buttock, stage 4; J18.9 Pneumonia, unspecified organism; J96.21 Acute and chronic respiratory failure with hypoxia; G82.52 Quadriplegia, C1-C4 incomplete; E43 Unspecified severe protein-calorie malnutrition; I10 Essential (primary) hypertension; E11.9 Type 2 diabetes mellitus without complications; E78.5 Hyperlipidemia, unspecified; K21.9 Gastro-esophageal reflux disease without esophagitis; G47.33 Obstructive sleep apnea (adult) (pediatric); N31.9 Neuromuscular dysfunction of bladder, unspecified; F41.9 Anxiety disorder, unspecified; E66.9 Obesity, unspecified; M10.9 Gout, unspecified; F32.9 Major depressive disorder, single episode, unspecified; I25.10 Atherosclerotic heart disease of native coronary artery without angina pectoris; X58.XXXA Exposure to other specified factors, initial encounter; Y95 Nosocomial condition; Z87.440 Personal history of urinary (tract) infections; Y93.89 Activity, other specified; Y92.89 Other specified places as the place of occurrence of the external cause; Y99.8 Other external cause status; Z93.3 Colostomy status; I25.2 Old myocardial infarction; Z79.899 Other long term (current) drug therapy; Z68.33 Body mass index [BMI] 33.0-33.9, adult; Z98.1 Arthrodesis status; Z87.81 Personal history of (healed) traumatic fracture; Z91.81 History of falling; Z93.0 Tracheostomy status; Z93.1 Gastrostomy status; Z88.5 Allergy status to narcotic agent; Z82.49 Family history of ischemic heart disease and other diseases of the circulatory system; Z80.8 Family history of malignant neoplasm of other organs or systems
CPT/HCPCS: 10078

== ENCOUNTER 2018-05-18 09:45 | Inpatient (IN) | payer OTHER ==
[~2018-05-18] VITALS: Ht 160 cm; Wt 86.5 kg
[~2018-05-18 09:45] MED LIST changes: +LINEZOLID600 MG/300 IV; +REGLAN 10 MG TA10 MG PO; +TOBRAMYCIN300 MG/7.5 INH
[2018-05-18] MEDS ORDERED: ARTIFICIAL TEA1 EACH (12:46)
[2018-05-18] MEDS ORDERED: COLACE100 MG PO (12:46)
[2018-05-18] MEDS ORDERED: VANCO 1 GR1 GM/250 M IVPB (12:54)
[2018-05-18] MEDS ORDERED: ENOXAPARIN40 MG/0.1 SUBQ (12:54)
[2018-05-18] MEDS ORDERED: SENNA8.6 MG PO (12:55)
[2018-05-18] MEDS ORDERED: MERREM1 GM IVPB (12:55)
[2018-05-18] MEDS ORDERED: PROTONIX 20 MG20 M1 PO (12:55)
[2018-05-18] MEDS ORDERED: XANAX 0.5 MG0.5 MG (12:56)
[2018-05-18] MEDS ORDERED: SILTUSSIN100 MG/5 M PO (12:56)
[2018-05-18] MEDS ORDERED: ONDANSETRON HCL4 M2 PO (12:57)
[2018-05-18 15:09] LABS: HEMATOCRIT 30.9 % (42.0-52.0); HEMOGLOBIN 10.3 gm/dL (14.0-18.0); MCH 27.7 pg (26.0-34.0); MCHC 33.2 g/dL (28.0-37.0); MCV 83.7 fL (80.0-100.0); RBC 3.7 mil/uL (4.50-6.00); RDW 17.3 % (10.5-14.5); WBC 9.3 thou/uL (4.0-11.0)
[2018-05-18 15:16] LABS: CALCIUM 9.1 mg/dL (8.5-10.1); CREATININE 0.7 mg/dL (0.7-1.3); POTASSIUM 4.3 mmol/L (3.5-5.1)
[2018-05-18 15:22] LABS: ALBUMIN 2.3 g/dL (3.4-5.0); TOTAL BILIRUBIN 0.3 mg/dL (<0.1-1.0); TOTAL PROTEIN 7.4 g/dL (6.4-8.2)
[2018-05-18 16:17] VITALS: BP 161/85
[2018-05-18 18:40] LABS: URINE BILIRUBIN NEGATIVE (Negative); URINE BLOOD NEGATIVE (Negative); URINE CLARITY CLEAR; URINE COLOR YELLOW; URINE GLUCOSE-RANDOM* NEGATIVE (Negative); URINE KETONES NEGATIVE (Negative); URINE LEUKOCYTES 2+ (Negative); URINE NITRITE NEGATIVE (Negative); URINE PROTEIN (DIPSTICK) NEGATIVE (Negative); URINE UROBILINOGEN 0.2 E.U./dl (0.2-1.0)
[2018-05-18 18:48] LABS: BACTERIA None Seen /HPF (None Seen); CASTS None Seen /LPF (None Seen); CRYSTALS None Seen /LPF (None Seen); SQUAMOUS 0-3 Few /LPF (0-3); URINE RBC 3-10 Few /HPF (0-2)
[2018-05-18 18:49] LABS: YEAST Present (None Seen)
[2018-05-18 19:15] VITALS: BP 143/75
--- NOTE | 2018-05-18 20:19 | NUR ---
ASSUMED CARE AT 0700, SHIFT ASSESSMENT DONE, ADMISSION COMPLETED. VSS. PATIENT ON TRACHE WITH SPEAKING VALVE, INDWELLING SUPRAPUBIC CATHETER, PEG TUBE AND COLOSTOMY. MED REC DONE. DR HUANG INVOLVED. IV ANTIBIOTICS AND FLUID STARTED. REPORTED PAIN, PRN PAIN MEDS GIVEN. RUNNING LOW GRADE FEVER, TYLENOL GIVEN. RT HAS BEEN SUCTIONING PATIENT NEEDED. WOUND PICTURES TAKEN. WILL CONTINUE TO ASSESS AND ASSIST WITH ADLs NEEDED.
--- NOTE | 2018-05-19 04:16 | NUR ---
Patient making slow progress towards outcome goals. Pain and anxiety control with Hydrocodone and Xanax. Tube feedings and IVFluids infusing. Blow light with in reach, uses call light appropriately for needs, Good urine output. Turned to sides. Spouse at bedside.
[2018-05-19 05:24] VITALS: BP 150/78
[2018-05-19 05:39] LABS: MCH 27.2 pg (26.0-34.0); MCHC 32.4 g/dL (28.0-37.0); MCV 83.9 fL (80.0-100.0); RBC 3.69 mil/uL (4.50-6.00); WBC 6.6 thou/uL (4.0-11.0)
[2018-05-19 05:49] LABS: CREATININE 0.6 mg/dL (0.7-1.3); POTASSIUM 4.2 mmol/L (3.5-5.1)
[2018-05-19 07:51] VITALS: BP 184/100
[2018-05-19 11:36] VITALS: BP 163/82
[2018-05-19 15:34] VITALS: BP 155/85
--- NOTE | 2018-05-19 18:16 | NUR ---
PT ALERT AND ORIENTED TIMES FOUR. VSS, 100/2L, TRACH, SR ON TELE. IVF INFUSING PER ORDER. PT DENIES PAIN. DRESSING TO BOTTOM CHANGED. PT HAS POOR APPETITE TODAY, BUT TOLERATES MEDS. AT BEDSIDE. WILL CONTINUE TO MONITOR.
[2018-05-19 20:05] VITALS: BP 110/54
[2018-05-20 04:50] VITALS: BP 141/70
[2018-05-20 05:38] LABS: HEMATOCRIT 32.1 % (42.0-52.0); HEMOGLOBIN 10.4 gm/dL (14.0-18.0); MCH 27.3 pg (26.0-34.0); MCHC 32.4 g/dL (28.0-37.0); MCV 84.1 fL (80.0-100.0); RBC 3.82 mil/uL (4.50-6.00); RDW 17.6 % (10.5-14.5); WBC 8.4 thou/uL (4.0-11.0)
--- NOTE | 2018-05-20 05:42 | NUR ---
PT MAKING SLOW PROGRESS TOWARDS GOALS. X3 LORTAB GIVEN OVERNIGHT FOR LEFT SHOULDER, NECK AND UPPER BACK PAIN. LIDOCAINE ORDERED AND PLACE ON PTS LEFT SHOULDER/UPPER ARM PER HIS REQUEST. RATING PAIN THIS MORNING 5/10 VERSUS 6/10 LAST NIGHT.
[2018-05-20 05:46] LABS: CALCIUM 9.5 mg/dL (8.5-10.1); CREATININE 0.6 mg/dL (0.7-1.3)
[2018-05-20 07:44] VITALS: BP 134/78
[2018-05-20 11:21] VITALS: BP 150/80
--- NOTE | 2018-05-20 12:16 | NUR ---
WOUND CONSULT: PT. WAS SEEN TODAY BY DR. PATINO AND MYSELF. PT. IS WELL KNOWN TO THE WOUND CARE TEAM. PT. HAS RESOLVING STAGE 4 PRESSURE ULCERS TO HIS SACRUM AND LEFT ISCHIAL TUBEROISTY. PT. WOUND BEDS ARE HEALTHY WITH NO SIGNS OR SYMPTOMS OF INFECTION NOTED. PT. IS IN GOOD SPIRITS THIS VISIT. RECOMMENDATIONS: [employer] TO BE CHANGED M/W/F AND PRN. PT. AND STAFF NURSE WERE INSTRUCTED ON PLAN OF CARE.
--- NOTE | 2018-05-20 13:52 | NUR ---
ORDERS RECEIVED FOR OT EVALUATION, PATIENT IS DEPENDENT WITH ALL CARE SECONDARY TO CHRONIC QUADRAPLEGIA. EVALUATION DEFERRED THANK YOU
--- NOTE | 2018-05-20 14:44 | NUR ---
cm visited with pt at bedside. pt preferrs going by shaniqua. pt is pleasant with flat affect. pt able to make is needs know. needs assistance with all adls, use omayra lift, takes btx, not on any o2 at [facility]. has trach, uses wheel chair. been there 1 year. pt able to use mouth piece/bit call light"/shaniqua. cm left message with sarah. will cont following as needed for dc needs.
--- NOTE | 2018-05-20 16:16 | NUR ---
PT REQUIRES TOTAL CARE FOR ADLS AND IS DEPENDENT FOR BED MOBILITY AND TXS VIA LEILA LIFT AT BASELINE. ACUTE P.T. NOT INDICATED UNABLE TO ESTABLISH ANY FUNCTIONAL GOALS.
[2018-05-20 16:52] VITALS: BP 165/75
--- NOTE | 2018-05-20 18:42 | NUR ---
PATIENT DENIES PAIN THROUGH THE DAY. HAD A BATH THIS AM. CALL LIGHT IN PLACE. CONT ON ABT FOR PNEUMONIA AND NO ADVERSE EFFECTS NOTED. WILL CONT WITH PLAN OF CARE.
[2018-05-20 20:20] VITALS: BP 159/75
[2018-05-21 04:10] VITALS: BP 124/69
--- NOTE | 2018-05-21 04:45 | NUR ---
Received pt. on 2L O2 , RT did trach care and breathing tx. Maintaining O2 sat in the upper 90's to 100%. Medicated for pain with some relief.Repositioned for comfort.Cont. on isolation , afebrile. Jevity 1.5 at 80 ml/hr from 2000 to 0600 with water flushes q4hrs while on tube feeding. SCD's applied last night. Calls appropriately for assistance. Making progress towards care plan goals.
[2018-05-21 05:30] LABS: CALCIUM 9.4 mg/dL (8.5-10.1); CREATININE 0.6 mg/dL (0.7-1.3); POTASSIUM 3.8 mmol/L (3.5-5.1)
[2018-05-21 05:45] LABS: HEMATOCRIT 31.2 % (42.0-52.0); HEMOGLOBIN 10.2 gm/dL (14.0-18.0); MCH 27.5 pg (26.0-34.0); MCHC 32.6 g/dL (28.0-37.0); MCV 84.3 fL (80.0-100.0); RBC 3.7 mil/uL (4.50-6.00); RDW 17.2 % (10.5-14.5); WBC 8.6 thou/uL (4.0-11.0)
[2018-05-21 07:51] VITALS: BP 182/82
--- NOTE | 2018-05-21 08:47 | HC ---
[facility] [place] [address] CONSULTATION Name: PAIGE ROB Room #: 361-P [facility] IN M.R.#: [id number] Admission: 05/18/18 Attend Phys: Kameron Gutierrez MD Discharge: Date of : 53 Report #: [id number] THIS REPORT FOR: //name// CC: FAM unknown Kameron Gutierrez DATE OF SERVICE: 05/20/2018 CHIEF COMPLAINT: Ischial and sacral pressure ulcerations and quadriplegia. HISTORY OF PRESENT ILLNESS: This is a 63-year-old male patient with a history of quadriplegia and stage 4 sacral and left ischial pressure ulceration. He has undergone previous surgical debridement. He has been followed as an outpatient at an outlying facility. He has had some recent skin substitutes applied. He has had previous PEG tube and diverting colostomy. He is once again admitted to [facility] with fever and possible PICC line infection. I have been asked to see him with regard to wound care. The patient states he feels reasonably well. He has had some cough and fever and chills. PAST MEDICAL HISTORY: Positive for previous fall from a step ladder in 2017, sustaining a neck fracture and resultant quadriplegia. The patient has had a C2 through T1 laminectomy with posterior instrumentation and fusion. He has a history of acute hypoxemic respiratory failure. He has tracheostomy placement, bronchoscopy. He has had a prosthetic left eye. He has PEG tube, hypertension, diabetes mellitus, hyperlipidemia, vertigo, gastroesophageal reflux disease, depression, coronary artery disease, neurogenic bladder with a Cervantes catheter. SOCIAL HISTORY: Negative for alcohol or tobacco use. He is a former smoker. FAMILY HISTORY: Positive for cancer and heart disease. REVIEW OF SYSTEMS: CONSTITUTIONAL: The patient does complain of fever and chills and generalized weakness. ENT: The patient denies earache, nasal drainage, sore throat. EYES: The patient denies visual changes, redness or drainage. NEUROLOGICAL: The patient does have quadriplegia. No new weakness noted. PULMONARY: The patient complains of mild cough without sputum production. He has tracheostomy. CARDIOVASCULAR: The patient denies chest pain, palpitation, diaphoresis. GASTROINTESTINAL: The patient denies nausea, vomiting, diarrhea or abdominal pain. ORTHOPEDIC: The patient is aware of the ulcerations as discussed above. Other systems on a 14-review of systems are negative. [address] [address] CONSULTATION Name: PAIGE ROB Room #: 361-P [facility] IN .R.#: [id number] Admission: 05/18/18 Attend Phys: Kameron Gutierrez MD Discharge: Date of : 51 Report #: [id number] PHYSICAL EXAMINATION: VITAL SIGNS: At this time include pulse rate 79, respiratory rate of 20, blood pressure 150/80, temperature 98.5. GENERAL: This is a chronically ill-appearing male patient who appears to be in minimal distress. HEENT: Head normocephalic. Nose is clear. NECK: Demonstrates tracheostomy in place. LUNGS: Diminished. HEART: Regular. ABDOMEN: Soft, bowel sounds present. MUSCULOSKELETAL: Examination of the pelvic region demonstrates stage 4 pressure ulcerations to the sacrum and left ischial region. These are substantially improved since I have last seen him. There is no exposure of deep structures at this time. NEUROLOGIC: The patient is alert and oriented. He has quadriplegia. LABORATORY DATA: Sodium 139, potassium 4.0, CO2 of 21, BUN 12, creatinine 0.6, glucose 123. White blood cell count 8.4 with a hemoglobin of 10.4. CLINICAL IMPRESSION: 1. Stage 4 pressure ulceration of the sacrum and left ischium, much improved status post prior surgical debridement. 2. Status post percutaneous endoscopic gastrostomy tube placement and diverting colostomy. 3. Quadriplegia secondary to spinal cord injury. RECOMMENDATIONS: At this point in time, the patient will be placed on a low air loss mattress. He will need every 2 hours turning and repositioning. PRAFO boots are already in place on both lower extremities. He will need a silver based foam to be changed on a Sunday, Sunday, Sunday and p.r.n. basis. I appreciate being asked to see him in consultation. <ELECTRONICALLY SIGNED> By: Cornelio Delgado MD 05/21/18 0847 1221 1602 Cornelio Delgado MD /nt
--- NOTE | 2018-05-21 10:10 | NUR ---
cm notified by bedside nurse that family is here and has question, cm visited with sarah at bedside, " what is the plan, how long will her be here, he will need transport back to [facility], they do not have transport"/ sarah. education that discussed during los yesterday 1-2 more days, referral and chart copy will be sent to [facility]. " i work so wont be able to be here for transport and have not spoke with dr, so would like to know what dr feel"/? . hospitalist made visit at end of cm visit. referral updates to be sent to [facility] and see if want pt to go skilled or return ltc status.
--- NOTE | 2018-05-21 10:50 | NUR ---
DP SENT REFERRAL TO [facility], PATIENT WILL DC IN A FEW DAYS, DP ASKED ON COVER SHEET IF THEY WANT TO SKILL HIM OR JUST LTC? dp ALSO SENT RADHA/ROXANA A MESSAGE TO LET HER KNOW OF INCOMING FAX, AND QUESTION. CM TO FOLLOW.
[2018-05-21 11:24] VITALS: BP 183/88
--- NOTE | 2018-05-21 11:51 | HC ---
[facility] [place] [address] CONSULTATION Name: PAIGE ROB Room #: 361-P [facility] IN M.R.#: [id number] Admission: 05/18/18 Attend Phys: Kameron Gutierrez MD Discharge: Date of : 51 Report #: [id number] THIS REPORT FOR: //name// CC: FAM unknown Kameron Gutierrez DATE OF SERVICE: 05/20/2018 ATTENDING PHYSICIAN: Kameron Gutierrez MD REASON FOR CONSULTATION: Pneumonia. Fever, resolved post PICC removal. HISTORY OF PRESENT ILLNESS: The patient is a 63-year-old man with history of quadriplegia following surgical intervention. The patient apparently was residing in a local skilled nursing. He was apparently transferred to another hospital and at the patient's family's request he is transferred to [facility]. The patient was found to have MRSA and acinetobacter in the sputum. He was on treatment with vancomycin and meropenem. The patient remained febrile till the PICC line was removed and since he has been afebrile. At present the patient is doing fairly well, voices no major complaints. We discussed about the multiple medical problems he has suffered in the past. The patient is paraplegic for the last couple of years since attempted surgical intervention to the cervical spine and resulted paraplegia. The patient has a sacral decubitus stage 3-4. The patient was febrile till the PICC line was removed. He has a chronic tracheostomy with a [place] valve in place, and previous sputum cultures have grown acinetobacter and MRSA and sensitivities report for those are pending. He did have Proteus mirabilis sensitive to most tested antibiotics in the sacral decubitus. At the referring hospital, the patient was receiving tobramycin inhalations b.i.d., linezolid 600 IV b.i.d. and Zosyn. Antibiotics, I believe, were changed to vancomycin, meropenem subsequently. PAST MEDICAL HISTORY: He also has history of hypertension, percutaneous gastrostomy, diabetes mellitus, gastroesophageal reflux, right thumb surgery, circumcision, left rotator cuff surgery, depression, history of myocardial infarction and coronary artery disease. SOCIAL HISTORY: See H and P, old records. FAMILY HISTORY: See H and P, old records. PHYSICAL EXAMINATION: GENERAL: Chronically ill-appearing man, not toxic looking. VITAL SIGNS: He has been afebrile since admission, temperature 98.5, pulse 79, respirations 20, BP 150/80. HEENMT: The left eye is a prosthetic one; he had [place] [address] CONSULTATION Name: PAIGE ROB Room #: 361-P [facility] IN ..#: [id number] Admission: 05/18/18 Attend Phys: Kameron Gutierrez MD Discharge: Date of : 51 Report #: [id number] a tumor behind the left eyeball many years ago at [facility]. Mouth: No thrush. NECK: Tracheostomy in place. LUNGS: Rhonchi, crackles both lung song anteriorly. HEART: S1, S2. No gallop or murmur. ABDOMEN: Obese, soft. Gastrostomy in place. GENITAL AND RECTAL: Deferred. BACK: Sacral area reveals a stage 3-4 sacral decubitus. EXTREMITIES: No clubbing, cyanosis. NEUROLOGIC: Revealed quadriplegia. LABORATORY DATA: Cultures are all pending. Sodium 139, potassium 4, BUN 12, creatinine 0.6. Albumin 2.3. WBC 8400, hemoglobin 10.4 g/dL, platelets 326,000. Vancomycin trough is 19. MRSA by PCR positive. Urinalysis revealed pyuria, microscopic hematuria and yeast. Chest x-ray revealed left basilar opacity and pneumonia. ASSESSMENT: 1. Febrile illness, possibly related to contaminated infected PICC line. 2. Lower respiratory tract infection with methicillin-resistant Staphylococcus aureus and acinetobacter. 3. Sacral decubitus, infected, colonized with Proteus mirabilis. 4. Quadriplegia. 5. History of left eye tumor, status post resection of left eye globe. 6. Diabetes mellitus. 7. Anemia of chronic disease. 8. Pyuria. SUGGESTIONS: Recommend continue treatment with vancomycin and meropenem, increase dose of meropenem to 1 gram IV every 8 hours. Monitor ESR and CRP. Dr. Gutierrez, thank you for requesting my suggestions. <ELECTRONICALLY SIGNED> By: Epifanio Tarango MD 05/21/18 1151 1321 1724 Epifanio Tarango MD /nt
--- NOTE | 2018-05-21 16:10 | NUR ---
WOUND FOLLOW UP: PT. WAS SEEN TODAY BY DR. PATINO AND MYSELF. PT. WOUNDS ARE STABLE AT THIS TIME AND PT. IS GOOD SPIRITS AT THIS VISIT. RECOMMENDATIONS: CONTINUE WITH CURRENT PLAN OF CARE. PT. AND STAFF NURSE WERE INSTRUCTED ON PLAN OF CARE.
--- NOTE | 2018-05-21 16:31 | NUR ---
ASSUMED CARE AT SHIFT CHANGE. PT A/O X4. APPROPRIATE AND CALM THROUGHOUT THE DAY. REPOSITIONED IN BED NEEDED PER APPROVAL OF PT. ASSESSMENTS PER CHART. LABS NOTED. PT PAIN MANAGED VIA PRN MEDS THROUGHOUT THE DAY. REPEAT CXR COMPLETE. FAMIYL AT BEDSIDE THIS MORNING. UPDATED ON POC. ADEQUATE INTAKE TODAY WITH BREAKFAST, MINIMAL AT LUNCH PER COLLET MAKER. VSS REMAIN STABLE. WILL CONT TO MONITOR AND FOLLOW POC.
[2018-05-21 16:55] VITALS: BP 157/77
[2018-05-21 19:35] VITALS: BP 140/65
--- NOTE | 2018-05-22 03:52 | NUR ---
PATIENT IS ALERT AND ORIENED. PATIENTS LBM WAS THE 20TH. PATIENT IS SBA. PATIENTS LUNGS ARE WHEEZY. PATIENT NSR TO SA ON TELE. PATIENT IS ON 4L NC, PATIENT DOES BIPAP HS. PATIENT HAD CHEST PAIN EKG AND TROP WERE NEGATIVE. PATIETN IS RESTING COMFORTABLEY. WCM PATIENT IS PROGRESSING TO GOALS
--- NOTE | 2018-05-22 05:11 | NUR ---
PATIENT IS ALERT AND ORIENTED. PATIENT IS A QUAD AND IS Q2TURN. PATIENT HAS A BLOW CALL LIGHT. PATIENT IS ON 2L NC. PATIENT IS CONTRACTED IN HIS UPPER EXTREMITIES. PATIENT HAS A COLOSTOMY AND A SUPRAPUBIC CATH. PATIENT HAS A TRACH #8 SHIELY THAT IS CAPPED AND CUFFED. PATIENTS DRESSING IS CLEAN DRY AND INTACT. PATIENT WAS ON TUBE FEED FOR THE LAB ASST. PATIENT IS A FEEDER. PATIENT IS RESTING COMFORTABELY IN BED. WCM.
[2018-05-22 05:14] VITALS: BP 120/58
[2018-05-22 07:53] VITALS: BP 129/70
[2018-05-22 08:45] LABS: HEMATOCRIT 30.9 % (42.0-52.0); HEMOGLOBIN 10.3 gm/dL (14.0-18.0); MCH 27.7 pg (26.0-34.0); MCHC 33.2 g/dL (28.0-37.0); MCV 83.3 fL (80.0-100.0); RBC 3.71 mil/uL (4.50-6.00); RDW 17.4 % (10.5-14.5); WBC 7.7 thou/uL (4.0-11.0)
[2018-05-22 08:52] LABS: CALCIUM 9.3 mg/dL (8.5-10.1); CREATININE 0.6 mg/dL (0.7-1.3); MAGNESIUM 1.5 mg/dL (1.8-2.4)
[2018-05-22 11:11] VITALS: BP 135/71
--- NOTE | 2018-05-22 11:21 | NUR ---
ASSUMED PATIENT CARE AT 0715. A&OX4. PATIENT IS A QUADRIPLEGIC FROM FALLING OFF A LADDER IN 2017. Q2 TURN. PATIENT HAS A BLOW CALL LIGHT. PATIENT NEEDS TO BE FED. TRACH IN PLACE, TRACH IS CUFFED AND CAPPED. TRACH IS A # SHILEY. INNER CANNULA CHANGED BY RESPIRATORY THERAPY THIS MORNING. WOUNDS ON COCCYX AND LEFT HIP. POSSIBLE BRONCH TOMORROW. TUBE FEEDS HS WITH WATER FLUSHES. PATIENT HAS SUPRAPUBIC CATH WHICH PUTS OUT LARGE AMOUNTS OF CLEAR, YELLOW URINE. PATIENT ALSO HAS COLOSTOMY. PATIENT PLACED ON TRACH SHIELD BY R.T. TO HELP HUMIDIFY THE AIR AND BREAK UP SECRETIONS. ABLE TO MAKE NEEDS KNOWN. SLOWLY WORKING TOWARD GOALS.
--- NOTE | 2018-05-22 13:25 | NUR ---
DISCHARGE NOTE: BRANDY reviewed chart and spoke with nursing and attending physician. Pt is medically stable for discharge back to [facility]. Awaiting discharge orders at this time. Pt will need ambulance transportation. Chart copy ordered. data processing systems project planner to coordinate. BRANDY is following to assist as needed.
[2018-05-22 16:18] VITALS: BP 174/77
[2018-05-22 19:43] VITALS: BP 155/83
[2018-05-23 04:03] VITALS: BP 169/85
--- NOTE | 2018-05-23 04:20 | NUR ---
Requested pain med and xanax at HS with some help. He slept fair during the night in between repositiioning. Trach shield at 35% with O2 sat in the upper 90's to 100%. Suctioned prn ,small amount of whitish phlegm. Afebrile. Jevity 1.5 at 80 ml/hr till 0200 then NPO for bronchoscopy this am. Will continue to monitor.
[2018-05-23 05:31] LABS: HEMATOCRIT 32.5 % (42.0-52.0); HEMOGLOBIN 10.6 gm/dL (14.0-18.0); MCH 27.3 pg (26.0-34.0); MCHC 32.5 g/dL (28.0-37.0); MCV 84.1 fL (80.0-100.0); RBC 3.87 mil/uL (4.50-6.00); RDW 17.5 % (10.5-14.5); WBC 8.6 thou/uL (4.0-11.0)
[2018-05-23 05:39] LABS: CREATININE 0.6 mg/dL (0.7-1.3); MAGNESIUM 1.7 mg/dL (1.8-2.4); POTASSIUM 4.1 mmol/L (3.5-5.1)
[2018-05-23 08:19] VITALS: BP 175/87
[2018-05-23 11:00] VITALS: BP 112/66
[2018-05-23 12:27] VITALS: BP 173/80
[2018-05-23] MEDS ORDERED: PULMICORT0.5 MG/21 INH (13:15)
[2018-05-23 13:35] VITALS: BP 146/79
--- NOTE | 2018-05-23 14:42 | NUR ---
DISCHARGE ORDERS RECEIVED. PATIENT DISCHARGING TO [facility]. CHART COPIED PER BODY AND FENDER WORKER. ORDERS FAXED TO TATIANA CEDILLO WITH [facility]. ORDERS VERIFIED RECEIVED. 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 TRIP NUMBER [id number], [facility] CONTACT NUMBER . LUANA NOTIFIED. UNIT RN NOTIFIED AND CONTACT NUMBER PROVIDED FOR REPORT. UNIT CM/SW AWARE.
--- NOTE | 2018-05-23 15:07 | NUR ---
DISCHARGE NOTE: SW reviewed chart and spoke with nursing and attending physician. Pt is medically stable for discharge back to [facility] today. information systems planner coordinated. No further SW needs identified at this time, but is available to assist should needs arise.
--- NOTE | 2018-05-23 15:31 | NUR ---
WOUND FOLLOW UP: PT. WAS SEEN TODAY BY DR. PATINO AND MYSELF. PT. WOUNDS ARE CLINICALLY BETTER UPON TODAYS ASSEMENT. RECOMMENDATIONS: CONTINUE WITH CURRENT PLAN OF CARE. PT. AND STAFF NURSE WERE INSTRUCTED ON PLAN OF CARE.
--- NOTE | 2018-05-23 17:41 | NUR ---
PATIENT HAS BEEN DISHCARGED TO [facility]. REPORT CALLED. HE WAS TAKEN BY AMBULANCE. HE IS ALERT ORIENTED X3. HE DOES NOT SEEM TO BE IN PAIN. AND CALLED AND NOTIFIED HE WILL BE DISCHARGED TODAY.
== END 2018-05-23 16:40 | DRG 314 ==
LOC: 3W 09:45
PROVIDERS: Internal Medicine; ADMIT Hospitalist
PROC: 5A09357 Assistance with Respiratory Ventilation, Less than 24 Consecutive Hours, Continuous Positive Airway Pressure (ICD-10-PCS; principal; 2018-05-23)
PROC: 0B9D8ZX Drainage of Right Middle Lung Lobe, Via Natural or Artificial Opening Endoscopic, Diagnostic (ICD-10-PCS; principal; 2018-05-23)
DX: T80.211A Bloodstream infection due to central venous catheter, initial encounter (principal); A41.9 Sepsis, unspecified organism; L89.154 Pressure ulcer of sacral region, stage 4; J18.9 Pneumonia, unspecified organism; J96.20 Acute and chronic respiratory failure, unspecified whether with hypoxia or hypercapnia; G82.50 Quadriplegia, unspecified; E43 Unspecified severe protein-calorie malnutrition; I10 Essential (primary) hypertension; E11.9 Type 2 diabetes mellitus without complications; E78.5 Hyperlipidemia, unspecified; K21.9 Gastro-esophageal reflux disease without esophagitis; F32.9 Major depressive disorder, single episode, unspecified; D63.8 Anemia in other chronic diseases classified elsewhere; J22 Unspecified acute lower respiratory infection; B95.62 Methicillin resistant Staphylococcus aureus infection as the cause of diseases classified elsewhere; G47.33 Obstructive sleep apnea (adult) (pediatric); E66.9 Obesity, unspecified; N31.9 Neuromuscular dysfunction of bladder, unspecified; I25.10 Atherosclerotic heart disease of native coronary artery without angina pectoris; Z82.49 Family history of ischemic heart disease and other diseases of the circulatory system; I25.2 Old myocardial infarction; Z87.81 Personal history of (healed) traumatic fracture; Z93.0 Tracheostomy status; Z93.1 Gastrostomy status; Z68.33 Body mass index [BMI] 33.0-33.9, adult; Z87.891 Personal history of nicotine dependence; Z93.3 Colostomy status; Y83.8 Other surgical procedures as the cause of abnormal reaction of the patient, or of later complication, without mention of misadventure at the time of the procedure; Y92.89 Other specified places as the place of occurrence of the external cause
CPT/HCPCS: 10879